=== PATIENT | female | born 1950 | race Caucasian/White ===

== ENCOUNTER → 2017-12-15 | Outpatient (CLI) | payer MEDICARE ==
[~2017-12-15] MED LIST: B-121000 MC1; CALCAVITDA PO; CHOL10002 PO; CRUTCH4 USE; FISH OIL PO; Ferrous Sulfat325 M2 PO; HYDACE5 PO; MIRALAX119 GM PO; MULVITA PO; NITR100; OMEP20ER PO; PSYL5.85P; SACC250C PO; VITAMIN D2000 UNIT PO; [UNRECOGNIZED DRUG - CODE] PO; [UNRECOGNIZED DRUG - OTHER]
[2017-12-15 13:39] LABS: Bilirubin, Urine Neg (Neg); Blood, Urine 5+ (Neg); Glucose Qualitative, Urine Neg (Neg); Ketones, Urine Neg (Neg); Leukocyte Esterase, Urine 3+ (Neg); Nitrite, Urine Neg (Neg); Protein, Urine 3+ (Neg); Urobilinogen, Urine NORM (Normal)
[2017-12-15 13:53] LABS: Appearance, Urine Turbid (Clear); Color, Urine Yellow (P-Yellow)
[2017-12-15 13:54] LABS: Bacteria Many /hpf; Red Blood Cells, Urine TNTC /hpf (0-2); Squamous Epithelial Cells Few /hpf (Few); White Blood Cells, Urine TNTC /hpf (0-5)
== END ==
LOC: OLS 12:08
PROVIDERS: Internal Medicine
DX: N39.0 Urinary tract infection, site not specified (principal)
CPT/HCPCS: 81001; 87077; 87086; 87186

== ENCOUNTER → 2018-01-05 | Outpatient (CLI) | payer MEDICARE | LOC: LAB SHORT 11:53 → PLD 11:53 | DX: C76.41 Malignant neoplasm of right upper limb (principal); D23.9 Other benign neoplasm of skin, unspecified | CPT/HCPCS: 88305 ==

== ENCOUNTER 2019-01-23 18:53 | Observation (INO) | payer MEDICARE ==
[~2019-01-23] VITALS: Ht 170.2 cm; Wt 60.3 kg
[2019-01-23 19:38] LABS: BASOPHILS ABSOLUTE AUTO 0.03 K/mm3 (0.00-0.23); BASOPHILS PERCENT AUTO 0 % (0-2); EOSINOPHILS ABSOLUTE AUTO 0.07 K/mm3 (0.00-0.68); EOSINOPHILS PERCENT AUTO 1 % (0-6); Hematocrit 43.9 % (33.0-51.0); Hemoglobin 14.4 g/dL (11.5-16.0); IMMATURE GRAN ABSOLUTE AUTO 0.01 K/mm3 (0.00-0.10); IMMATURE GRAN PERCENT AUTO 0 % (0-1); LYMPHOCYTES ABSOLUTE AUTO 1.63 K/mm3 (0.84-5.20); LYMPHOCYTES PERCENT AUTO 17 % (21-46); MONOCYTES ABSOLUTE AUTO 1.01 K/mm3 (0.16-1.47); MONOCYTES PERCENT AUTO 11 % (4-13); Mean Corpuscular HGB 30.1 pg (26.0-34.0); Mean Corpuscular HGB Conc 32.8 g/dL (31.5-36.5); Mean Corpuscular Volume 92 fL (80-100); Mean Platelet Volume 9.3 fL (9.1-12.4); NEUTROPHILS ABSOLUTE AUTO 6.64 K/mm3 (1.96-9.15); NEUTROPHILS PERCENT AUTO 71 % (41-73); Platelet Count 309 K/mm3 (150-400); RDW Coefficient Variation 13.3 % (11.7-14.2); Red Blood Cell Count 4.79 M/mm3 (3.80-5.20); White Blood Cell Count 9.39 K/mm3 (4.00-11.30)
[2019-01-23 20:20] LABS: Albumin, Blood 3.1 g/dL (3.4-5.0); Albumin/Globulin Ratio 0.7 (0.8-1.8); Bilirubin, Total 0.7 mg/dL (0.1-1.0); Bun/Creatinine Ratio 20.6 (12.0-20.0); Creatinine, Blood 1.02 mg/dL (0.40-1.00); Globulin, Blood 4.2 g/dL (2.2-4.0); Total Protein, Blood 7.3 g/dL (6.4-8.2)
[2019-01-23 21:02] LABS: Source, Urine Voided
[2019-01-23 21:07] LABS: Appearance, Urine Clear (Clear); Bilirubin, Urine Neg (Neg); Blood, Urine 2+ (Neg); Color, Urine Yellow (P-Yellow); Glucose Qualitative, Urine Neg (Neg); Ketones, Urine 1+ (Neg); Leukocyte Esterase, Urine 1+ (Neg); Nitrite, Urine Neg (Neg); Protein, Urine Neg (Neg); Urobilinogen, Urine NORM (Normal)
[2019-01-23 21:17] LABS: Red Blood Cells, Urine 0-2 /hpf (0-2); Squamous Epithelial Cells Rare /hpf (Few); White Blood Cells, Urine 0-2 /hpf (0-5)
[2019-01-23 21:18] LABS: Bacteria Not Seen /hpf; Calcium Oxalate Crystals Few /hpf
--- NOTE | 2019-01-24 04:37 | NUR ---
SHIFT SUMMARY PT NEW ADMIT THIS SHIFT. AAOX4. DISCOMFORT CONTROLLED WITH 1MG IV DILAUDID X1 SINCE ADMISSION TO FLOOR. NO NAUSEA/EMESIS. SMALL LIQUID STOOL THIS AM. NPO. IVF PER ORDERS. PT ORIENTED TO ROOM + CALL LIGHT USE.
--- NOTE | 2019-01-24 18:42 | NUR ---
PT HAS BEEN STABLE THIS SHIFT. NO COMPLAINTS OF PAIN. XRAY THIS AM SHOWS NO OBSTRUCTION. PT STARTED ON CLEARS, DAKOTA WELL WITHOUT NAUSEA BUT HAD SOME SLIGHT CRAMPING. FL ORDERED FOR BREAKFAST. PT WALKING THE HALLWAYS FREQUENTLY. PT HAS HAD SEVERAL SMALL MUCOUS LIKE BM'S. USES CALL LIGHT APPROPRIATELY.
--- NOTE | 2019-01-25 04:33 | NUR ---
SHIFT SUMMARY PT UP WALKING IN HALLS T/O SHIFT. AAOX4. PT REPORTING FLATUS, NO BM. PT DENIES DISCOMFORT/NAUSEA. PT RESTED INFREQUENTLY T/O NIGHT. CALL LIGHT IN REACH + PT USES FOR ASSISTANCE.
--- NOTE | 2019-01-25 07:42 | NUR ---
PT LAYING ON HER SIDE WITH LEGS DRAWN UP STATED SHE IS PASSING FLATUS NO STOOL THIS AM HYPO BT'S X4 PT STATED PAIN IS 4/10 THRU THE BACK RADIATING TO THE ABD SHARP CRAMPING WITH MILD NAUSEA NO EMESIS PT STATED SHE IS HOLDING OFF EATING AT THIS TIME OFFERED NAUSEA MEDS DECLINED AT THIS TIME
--- NOTE | 2019-01-25 10:59 | NUR ---
pt amb in [facility] called dr marshall office message left pt still having pain req pain meds contacted dr martin who the office stated was manager instrumentation he said rolando was manager instrumentation for his pt's called the office back to let them know stated he is not manager instrumentation for dr garsia pt
--- NOTE | 2019-01-25 11:22 | NUR ---
DR GRANADOS PLACED AN ORDER FOR FENT PRN PAIN STILL IN SAME LOCATION 25 MCG GIVEN ENCOURAGED PT TO TRIAL SOME CL
--- NOTE | 2019-01-25 13:00 | NUR ---
PT HAD SOME JUICE AND JELLO DAKOTA WELL NO NAUSEA
--- NOTE | 2019-01-25 17:09 | NUR ---
PT SITTING UP IN CHAIR STATED SHE JUST GOT BACK FROM A WALK EARLIER HAD SMALL AMT OF STOOL PINKY SIZED SUAREZ BROWN IN COLOR
--- NOTE | 2019-01-26 05:25 | NUR ---
PT VSS T/O NIGHT. PT REP PAIN DAKOTA 01/03, DENIED NEED FOR PAIN MEDS. PT REP HAVING SEVERAL LIQ BM'S, DOES REP SOME CRAMPING W/VOID. PT DENIED N/V, CONT TO REP DEC APPETITE. PT AMB INDEP IN HALLS, DAKOTA WELL. PT USING CALL LIGHT FOR ASSISTANCE, WILL CONT TO MONITOR UNTIL REP GIVEN TO ONCOMING RN.
--- NOTE | 2019-01-26 07:51 | NUR ---
pt sleeping wakes to verbal stimuli stated no abd pain today no stool this am passing gas no nausea
--- NOTE | 2019-01-26 08:47 | NUR ---
PT DAKOTA BREAKFAST STILL NO BM
--- NOTE | 2019-01-26 10:37 | NUR ---
STILL NO BM THIS AM DECREASED FLATUS STATED SHE FEELS BLOATED S/O AT BEDSIDE AMB THIS AM
--- NOTE | 2019-01-26 12:58 | NUR ---
DR GRANADOS BY TO SEE PT
--- NOTE | 2019-01-26 13:40 | NUR ---
WC ESCORT TO CAR PT HAD SMALL BM BEFORE LEAVING
== END 2019-01-26 13:39 | disposition home or self-care (01) ==
LOC: ER 18:53 → SURS 18:54
PROVIDERS: Emergency Medicine; ADMIT Surgery
DX: K56.609 Unspecified intestinal obstruction, unspecified as to partial versus complete obstruction (principal); E78.5 Hyperlipidemia, unspecified; N18.4 Chronic kidney disease, stage 4 (severe); Z88.0 Allergy status to penicillin; Z87.891 Personal history of nicotine dependence; Z79.899 Other long term (current) drug therapy
CPT/HCPCS: 36415; 74018; 74176; 80053; 81001; 83690; 85025; 87086; 96361; 96374; 96375; 99285-25; J1170; J2060; J2405; J3010; J7030; J7120

== ENCOUNTER → 2019-04-07 | Outpatient (CLI) | payer MEDICARE ==
[~2019-04-07] MED LIST changes: +CIPR250; +POTA10T
== END | disposition home or self-care (01) ==
LOC: PLD 12:02 → LAB SHORT 12:02
DX: D48.5 Neoplasm of uncertain behavior of skin (principal)
CPT/HCPCS: 88305

== ENCOUNTER → 2019-06-21 | Outpatient (CLI) | payer MEDICARE ==
[2019-06-21 11:37] LABS: BASOPHILS ABSOLUTE AUTO 0.03 K/mm3 (0.00-0.23); BASOPHILS PERCENT AUTO 0 % (0-2); EOSINOPHILS ABSOLUTE AUTO 0.03 K/mm3 (0.00-0.68); EOSINOPHILS PERCENT AUTO 0 % (0-6); Hematocrit 37.1 % (33.0-51.0); Hemoglobin 12.4 g/dL (11.5-16.0); IMMATURE GRAN ABSOLUTE AUTO 0.04 K/mm3 (0.00-0.10); IMMATURE GRAN PERCENT AUTO 0 % (0-1); LYMPHOCYTES ABSOLUTE AUTO 0.83 K/mm3 (0.84-5.20); LYMPHOCYTES PERCENT AUTO 9 % (21-46); MONOCYTES PERCENT AUTO 12 % (4-13); Mean Corpuscular HGB 30.2 pg (26.0-34.0); Mean Corpuscular HGB Conc 33.4 g/dL (31.5-36.5); Mean Corpuscular Volume 91 fL (80-100); NEUTROPHILS ABSOLUTE AUTO 7.52 K/mm3 (1.96-9.15); NEUTROPHILS PERCENT AUTO 79 % (41-73); Platelet Count 170 K/mm3 (150-400); RDW Coefficient Variation 13.1 % (11.7-14.2); RDW Standard Deviation 43.2 fL (35.1-46.3); White Blood Cell Count 9.55 K/mm3 (4.00-11.30)
[2019-06-21 11:47] LABS: Albumin, Blood 3.1 g/dL (3.4-5.0); Albumin/Globulin Ratio 0.8 (0.8-1.8); Bilirubin, Total 0.9 mg/dL (0.1-1.0); Bun/Creatinine Ratio 8.3 (12.0-20.0); Calcium, Blood 8.7 mg/dL (8.5-10.1); Creatinine, Blood 7.43 mg/dL (0.40-1.00); Potassium, Blood 4.3 mmol/L (3.5-5.5); Total Protein, Blood 7.1 g/dL (6.4-8.2)
== END ==
LOC: LAB EV 11:33 → LAB SHORT 11:33
PROVIDERS: Physician Assistant Medical
DX: N13.30 Unspecified hydronephrosis (principal)
CPT/HCPCS: 80053; 85025

== ENCOUNTER → 2019-07-01 | Outpatient (CLI) | payer MEDICARE | END | disposition home or self-care (01) | LOC: LAB SHORT 10:32 → LAB EV 10:32 | DX: R31.9 Hematuria, unspecified (principal) | CPT/HCPCS: 87077; 87086; 87186 ==

== ENCOUNTER 2019-07-04 06:59 | Inpatient (IN) | payer MEDICARE ==
[~2019-07-04] VITALS: Ht 170.2 cm; Wt 53.4 kg
[~2019-07-04 06:59] MED LIST changes: -CIPR250; -POTA10T
[2019-07-04 08:15] LABS: Source, Urine Clean Catch
[2019-07-04 08:17] LABS: BASOPHILS ABSOLUTE AUTO 0.03 K/mm3 (0.00-0.23); BASOPHILS PERCENT AUTO 0 % (0-2); EOSINOPHILS ABSOLUTE AUTO 0.06 K/mm3 (0.00-0.68); EOSINOPHILS PERCENT AUTO 1 % (0-6); Hematocrit 42.2 % (33.0-51.0); Hemoglobin 13.9 g/dL (11.5-16.0); IMMATURE GRAN ABSOLUTE AUTO 0.03 K/mm3 (0.00-0.10); IMMATURE GRAN PERCENT AUTO 0 % (0-1); LYMPHOCYTES ABSOLUTE AUTO 1.41 K/mm3 (0.84-5.20); LYMPHOCYTES PERCENT AUTO 13 % (21-46); MONOCYTES ABSOLUTE AUTO 1.11 K/mm3 (0.16-1.47); MONOCYTES PERCENT AUTO 10 % (4-13); Mean Corpuscular HGB 29.7 pg (26.0-34.0); Mean Corpuscular HGB Conc 32.9 g/dL (31.5-36.5); Mean Corpuscular Volume 90 fL (80-100); Mean Platelet Volume 9.7 fL (9.1-12.4); NEUTROPHILS ABSOLUTE AUTO 8.66 K/mm3 (1.96-9.15); NEUTROPHILS PERCENT AUTO 77 % (41-73); Platelet Count 334 K/mm3 (150-400); RDW Coefficient Variation 13.2 % (11.7-14.2); RDW Standard Deviation 43.2 fL (35.1-46.3); Red Blood Cell Count 4.68 M/mm3 (3.80-5.20)
[2019-07-04 08:21] LABS: Bilirubin, Urine Neg (Neg); Blood, Urine 5+ (Neg); Glucose Qualitative, Urine Neg (Neg); Ketones, Urine 1+ (Neg); Leukocyte Esterase, Urine 3+ (Neg); Nitrite, Urine Pos (Neg); Protein, Urine 3+ (Neg); Urobilinogen, Urine NORM (Normal)
[2019-07-04 08:29] LABS: Appearance, Urine Cloudy (Clear)
[2019-07-04 08:30] LABS: Color, Urine Amber (P-Yellow)
[2019-07-04 08:31] LABS: Bacteria Mod /hpf; Red Blood Cells, Urine TNTC /hpf (0-2); Squamous Epithelial Cells Few /hpf (Few); White Blood Cells, Urine 25-50 /hpf (0-5)
[2019-07-04 08:40] LABS: Albumin, Blood 3.5 g/dL (3.4-5.0); Albumin/Globulin Ratio 0.8 (0.8-1.8); Bilirubin, Total 0.8 mg/dL (0.1-1.0); Bun/Creatinine Ratio 19.1 (12.0-20.0); Calcium, Blood 9.4 mg/dL (8.5-10.1); Creatinine, Blood 1.94 mg/dL (0.40-1.00); Globulin, Blood 4.3 g/dL (2.2-4.0); Potassium, Blood 4.4 mmol/L (3.5-5.5); Total Protein, Blood 7.8 g/dL (6.4-8.2)
[2019-07-05 05:01] LABS: BASOPHILS ABSOLUTE AUTO 0.03 K/mm3 (0.00-0.23); BASOPHILS PERCENT AUTO 1 % (0-2); Hematocrit 46.2 % (33.0-51.0); Hemoglobin 15.1 g/dL (11.5-16.0); LYMPHOCYTES PERCENT AUTO 8 % (21-46); MONOCYTES ABSOLUTE AUTO 0.95 K/mm3 (0.16-1.47); MONOCYTES PERCENT AUTO 26 % (4-13); Mean Corpuscular HGB 29.5 pg (26.0-34.0); Mean Corpuscular HGB Conc 32.7 g/dL (31.5-36.5); Mean Corpuscular Volume 90 fL (80-100); Mean Platelet Volume 9.8 fL (9.1-12.4); Platelet Count 341 K/mm3 (150-400); RDW Coefficient Variation 13.1 % (11.7-14.2); RDW Standard Deviation 43.8 fL (35.1-46.3); Red Blood Cell Count 5.12 M/mm3 (3.80-5.20); White Blood Cell Count 3.71 K/mm3 (4.00-11.30)
[2019-07-05 05:03] LABS: EOSINOPHILS PERCENT AUTO 0 % (0-6); IMMATURE GRAN ABSOLUTE AUTO 0.01 K/mm3 (0.00-0.10); IMMATURE GRAN PERCENT AUTO 0 % (0-1); NEUTROPHILS ABSOLUTE AUTO 2.42 K/mm3 (1.96-9.15); NEUTROPHILS PERCENT AUTO 65 % (41-73)
[2019-07-05 05:45] LABS: Albumin, Blood 3.4 g/dL (3.4-5.0); Bun/Creatinine Ratio 24.1 (12.0-20.0); Calcium, Blood 9.4 mg/dL (8.5-10.1); Creatinine, Blood 2.45 mg/dL (0.40-1.00); Magnesium, Blood 2.1 mg/dL (1.6-2.4); Phosphorus, Blood 4.6 mg/dL (2.5-4.9); Potassium, Blood 5.2 mmol/L (3.5-5.5)
[2019-07-05 05:47] LABS: Albumin/Globulin Ratio 0.7 (0.8-1.8); Bilirubin, Total 0.6 mg/dL (0.1-1.0); Globulin, Blood 4.8 g/dL (2.2-4.0); Total Protein, Blood 8.2 g/dL (6.4-8.2)
[2019-07-06 04:52] LABS: BASOPHILS ABSOLUTE AUTO 0.04 K/mm3 (0.00-0.23); BASOPHILS PERCENT AUTO 1 % (0-2); LYMPHOCYTES ABSOLUTE AUTO 0.68 K/mm3 (0.84-5.20); LYMPHOCYTES PERCENT AUTO 12 % (21-46); MONOCYTES PERCENT AUTO 12 % (4-13); Mean Corpuscular HGB 30.3 pg (26.0-34.0); Mean Corpuscular HGB Conc 33.3 g/dL (31.5-36.5); Mean Corpuscular Volume 91 fL (80-100); Mean Platelet Volume 10.5 fL (9.1-12.4); Platelet Count 234 K/mm3 (150-400); RDW Coefficient Variation 13.1 % (11.7-14.2); RDW Standard Deviation 43.7 fL (35.1-46.3); Red Blood Cell Count 3.96 M/mm3 (3.80-5.20)
[2019-07-06 04:53] LABS: EOSINOPHILS ABSOLUTE AUTO 0.05 K/mm3 (0.00-0.68); EOSINOPHILS PERCENT AUTO 1 % (0-6); IMMATURE GRAN ABSOLUTE AUTO 0.04 K/mm3 (0.00-0.10); IMMATURE GRAN PERCENT AUTO 1 % (0-1); NEUTROPHILS ABSOLUTE AUTO 4.29 K/mm3 (1.96-9.15); NEUTROPHILS PERCENT AUTO 74 % (41-73)
[2019-07-06 05:14] LABS: Albumin, Blood 2.5 g/dL (3.4-5.0); Albumin/Globulin Ratio 0.6 (0.8-1.8); Bilirubin, Total 0.3 mg/dL (0.1-1.0); Bun/Creatinine Ratio 26.5 (12.0-20.0); Calcium, Blood 8.3 mg/dL (8.5-10.1); Creatinine, Blood 3.32 mg/dL (0.40-1.00); Globulin, Blood 3.9 g/dL (2.2-4.0); Magnesium, Blood 2.3 mg/dL (1.6-2.4); Phosphorus, Blood 3.6 mg/dL (2.5-4.9); Potassium, Blood 3.8 mmol/L (3.5-5.5); Total Protein, Blood 6.4 g/dL (6.4-8.2)
[2019-07-07 06:18] LABS: Hematocrit 34.4 % (33.0-51.0); Hemoglobin 11.2 g/dL (11.5-16.0); Mean Corpuscular HGB 29.9 pg (26.0-34.0); Mean Corpuscular HGB Conc 32.6 g/dL (31.5-36.5); Mean Corpuscular Volume 92 fL (80-100); Mean Platelet Volume 10.5 fL (9.1-12.4); Platelet Count 178 K/mm3 (150-400); RDW Coefficient Variation 12.9 % (11.7-14.2); RDW Standard Deviation 43.3 fL (35.1-46.3); Red Blood Cell Count 3.75 M/mm3 (3.80-5.20); White Blood Cell Count 5.58 K/mm3 (4.00-11.30)
[2019-07-07 06:36] LABS: Albumin, Blood 2.5 g/dL (3.4-5.0); Albumin/Globulin Ratio 0.7 (0.8-1.8); Bilirubin, Total 0.2 mg/dL (0.1-1.0); Bun/Creatinine Ratio 31.5 (12.0-20.0); Calcium, Blood 8.4 mg/dL (8.5-10.1); Globulin, Blood 3.7 g/dL (2.2-4.0); Magnesium, Blood 2.2 mg/dL (1.6-2.4); Phosphorus, Blood 2.6 mg/dL (2.5-4.9); Potassium, Blood 3.3 mmol/L (3.5-5.5); Total Protein, Blood 6.2 g/dL (6.4-8.2)
[2019-07-07 06:49] LABS: BAND PERCENT MAN 7 % (0-8); BASOPHILS ABSOLUTE MAN 0.05 K/mm3 (0.00-0.23); BASOPHILS PERCENT MAN 1 % (0-2); EOSINOPHILS ABSOLUTE MAN 0.16 K/mm3 (0.00-0.68); EOSINOPHILS PERCENT MAN 3 % (0-6); LYMPHOCYTES ABSOLUTE MAN 0.44 K/mm3 (0.84-5.20); LYMPHOCYTES PERCENT MAN 8 % (21-46); MONOCYTES ABSOLUTE MAN 0.22 K/mm3 (0.16-1.47); MONOCYTES PERCENT MAN 4 % (4-13); NEUTROPHILS ABSOLUTE MAN 4.68 K/mm3 (1.96-9.15); SEG NEUTROPHILS PERCENT MAN 77 % (41-73); TOTAL CELLS COUNTED 100
[2019-07-07] MEDS ORDERED: CIPR250 (09:35)
[2019-07-07] MEDS ORDERED: POTA10T (09:37)
== END 2019-07-07 13:10 | disposition home or self-care (01) | DRG 389 ==
LOC: ER 06:59 → MEDS 07:00 → ENPENDDIS 07-07 09:26 → MEDS 07-07 13:10
PROVIDERS: Emergency Medicine; Internal Medicine Nephrology; ADMIT Hospitalist
DX: K56.609 Unspecified intestinal obstruction, unspecified as to partial versus complete obstruction (principal); E87.2 Acidosis; N17.9 Acute kidney failure, unspecified; N39.0 Urinary tract infection, site not specified; N18.3 Chronic kidney disease, stage 3 (moderate); E87.6 Hypokalemia; D64.9 Anemia, unspecified; N13.9 Obstructive and reflux uropathy, unspecified; E88.09 Other disorders of plasma-protein metabolism, not elsewhere classified; E87.5 Hyperkalemia; D89.2 Hypergammaglobulinemia, unspecified; Z87.891 Personal history of nicotine dependence
CPT/HCPCS: 36415; 74019; 74176; 80053; 81001; 83690; 83735; 83880; 84100; 85025; 87086; 96361; 96365; 96375; 96376; 99285-25; J0744; J1170; J1650; J1956; J2405; J2550; J3010; J7030; J7050; J7070; J7120; J7131

== ENCOUNTER → 2019-10-25 | Outpatient (CLI) | payer MEDICARE ==
[~2019-10-25] MED LIST changes: +CIPR250; +POTA10T
[2019-10-25 16:00] LABS: BASOPHILS ABSOLUTE AUTO 0.08 K/mm3 (0.00-0.23); BASOPHILS PERCENT AUTO 1 % (0-2); EOSINOPHILS PERCENT AUTO 2 % (0-6); Hematocrit 36.2 % (33.0-51.0); Hemoglobin 11.6 g/dL (11.5-16.0); IMMATURE GRAN ABSOLUTE AUTO 0.06 K/mm3 (0.00-0.10); IMMATURE GRAN PERCENT AUTO 1 % (0-1); LYMPHOCYTES ABSOLUTE AUTO 1.93 K/mm3 (0.84-5.20); LYMPHOCYTES PERCENT AUTO 18 % (21-46); MONOCYTES ABSOLUTE AUTO 0.76 K/mm3 (0.16-1.47); MONOCYTES PERCENT AUTO 7 % (4-13); Mean Corpuscular HGB 29.1 pg (26.0-34.0); Mean Corpuscular Volume 91 fL (80-100); Mean Platelet Volume 8.7 fL (9.1-12.4); NEUTROPHILS ABSOLUTE AUTO 7.64 K/mm3 (1.96-9.15); NEUTROPHILS PERCENT AUTO 72 % (41-73); RDW Coefficient Variation 13.7 % (11.7-14.2); RDW Standard Deviation 45.7 fL (35.1-46.3); Red Blood Cell Count 3.99 M/mm3 (3.80-5.20); White Blood Cell Count 10.67 K/mm3 (4.00-11.30)
[2019-10-25 16:11] LABS: Albumin, Blood 3.3 g/dL (3.4-5.0); Albumin/Globulin Ratio 0.6 (0.8-1.8); Bilirubin, Total 0.2 mg/dL (0.1-1.0); Bun/Creatinine Ratio 22.4 (12.0-20.0); Calcium, Blood 9.3 mg/dL (8.5-10.1); Creatinine, Blood 1.7 mg/dL (0.40-1.00); Globulin, Blood 5.4 g/dL (2.2-4.0); Potassium, Blood 5.3 mmol/L (3.5-5.5); Total Protein, Blood 8.7 g/dL (6.4-8.2)
[2019-10-25 16:26] LABS: Platelet Count 1148 K/mm3 (150-400)
== END | disposition home or self-care (01) ==
LOC: LAB EV 15:54 → LAB SHORT 15:54
PROVIDERS: Physician Assistant Medical
DX: R53.83 Other fatigue (principal)
CPT/HCPCS: 80053; 85025

== ENCOUNTER → 2019-10-26 | Outpatient (CLI) | payer MEDICARE ==
[2019-10-26 08:40] LABS: BASOPHILS ABSOLUTE AUTO 0.08 K/mm3 (0.00-0.23); BASOPHILS PERCENT AUTO 1 % (0-2); EOSINOPHILS ABSOLUTE AUTO 0.35 K/mm3 (0.00-0.68); EOSINOPHILS PERCENT AUTO 4 % (0-6); Hematocrit 33.9 % (33.0-51.0); Hemoglobin 10.7 g/dL (11.5-16.0); IMMATURE GRAN ABSOLUTE AUTO 0.06 K/mm3 (0.00-0.10); IMMATURE GRAN PERCENT AUTO 1 % (0-1); LYMPHOCYTES ABSOLUTE AUTO 2.07 K/mm3 (0.84-5.20); LYMPHOCYTES PERCENT AUTO 22 % (21-46); MONOCYTES ABSOLUTE AUTO 0.69 K/mm3 (0.16-1.47); MONOCYTES PERCENT AUTO 7 % (4-13); Mean Corpuscular HGB Conc 31.6 g/dL (31.5-36.5); Mean Corpuscular Volume 92 fL (80-100); Mean Platelet Volume 8.7 fL (9.1-12.4); NEUTROPHILS ABSOLUTE AUTO 6.24 K/mm3 (1.96-9.15); NEUTROPHILS PERCENT AUTO 66 % (41-73); Platelet Count 951 K/mm3 (150-400); RDW Coefficient Variation 13.7 % (11.7-14.2); RDW Standard Deviation 46.6 fL (35.1-46.3); Red Blood Cell Count 3.69 M/mm3 (3.80-5.20); White Blood Cell Count 9.49 K/mm3 (4.00-11.30)
[2019-10-26 08:53] LABS: Albumin, Blood 2.9 g/dL (3.4-5.0); Albumin/Globulin Ratio 0.6 (0.8-1.8); Bilirubin, Total 0.2 mg/dL (0.1-1.0); Calcium, Blood 9.2 mg/dL (8.5-10.1); Creatinine, Blood 1.43 mg/dL (0.40-1.00); Globulin, Blood 4.9 g/dL (2.2-4.0); Potassium, Blood 4.4 mmol/L (3.5-5.5); Total Protein, Blood 7.8 g/dL (6.4-8.2)
== END | disposition home or self-care (01) ==
LOC: LAB SHORT 08:36 → LAB EV 08:36
PROVIDERS: Physician Assistant Medical
DX: R94.4 Abnormal results of kidney function studies (principal)
CPT/HCPCS: 80053; 85025

== ENCOUNTER 2020-04-05 00:46 | Day surgery (SDC) | payer MEDICARE | END 2020-04-05 23:17 | disposition home or self-care (01) | LOC: WOUND 00:46 | DX: S31.000A Unspecified open wound of lower back and pelvis without penetration into retroperitoneum, initial encounter (principal); T81.31XA Disruption of external operation (surgical) wound, not elsewhere classified, initial encounter; N18.3 Chronic kidney disease, stage 3 (moderate); Z90.710 Acquired absence of both cervix and uterus; Z90.79 Acquired absence of other genital organ(s); Z90.722 Acquired absence of ovaries, bilateral; Z90.49 Acquired absence of other specified parts of digestive tract | CPT/HCPCS: G0463 ==

== ENCOUNTER → 2020-04-11 | Outpatient (CLI) | payer MEDICARE | END | disposition home or self-care (01) | LOC: PLD 11:44 → LAB SHORT 11:44 | DX: D48.5 Neoplasm of uncertain behavior of skin (principal) | CPT/HCPCS: 88305 ==

== ENCOUNTER 2020-04-13 00:16 | Day surgery (SDC) | payer MEDICARE | END 2020-04-13 23:15 | disposition home or self-care (01) | LOC: WOUND 00:16 | DX: S31.0 Open wound of lower back and pelvis (principal); T81.31XD Disruption of external operation (surgical) wound, not elsewhere classified, subsequent encounter | CPT/HCPCS: G0463 ==

== ENCOUNTER 2020-04-20 00:21 | Day surgery (SDC) | payer MEDICARE | END 2020-04-20 23:02 | disposition home or self-care (01) | LOC: WOUND 00:21 | DX: T81.31XD Disruption of external operation (surgical) wound, not elsewhere classified, subsequent encounter (principal); S31.000D Unspecified open wound of lower back and pelvis without penetration into retroperitoneum, subsequent encounter; X58.XXXD Exposure to other specified factors, subsequent encounter ==

== ENCOUNTER 2020-04-24 00:20 | Day surgery (SDC) | payer MEDICARE | END 2020-04-24 22:48 | disposition home or self-care (01) | LOC: WOUND 00:20 | DX: S31.000D Unspecified open wound of lower back and pelvis without penetration into retroperitoneum, subsequent encounter (principal) ==

== ENCOUNTER 2020-04-27 00:21 | Day surgery (SDC) | payer MEDICARE | END 2020-04-27 22:49 | disposition home or self-care (01) | LOC: WOUND 00:21 | DX: S31.000D Unspecified open wound of lower back and pelvis without penetration into retroperitoneum, subsequent encounter (principal); T81.31XD Disruption of external operation (surgical) wound, not elsewhere classified, subsequent encounter; L59.9 Disorder of the skin and subcutaneous tissue related to radiation, unspecified; Z90.710 Acquired absence of both cervix and uterus; Z92.3 Personal history of irradiation; Z90.79 Acquired absence of other genital organ(s); Z90.722 Acquired absence of ovaries, bilateral | CPT/HCPCS: G0463 ==

== ENCOUNTER 2020-05-10 00:13 | Day surgery (SDC) | payer MEDICARE | END 2020-05-10 22:53 | disposition home or self-care (01) | LOC: WOUND 00:13 | DX: S31.000D Unspecified open wound of lower back and pelvis without penetration into retroperitoneum, subsequent encounter (principal) | CPT/HCPCS: G0463 ==

== ENCOUNTER 2020-06-05 00:21 | Day surgery (SDC) | payer MEDICARE | END 2020-06-05 22:57 | disposition home or self-care (01) | LOC: HBO 00:21 | DX: L98.499 Non-pressure chronic ulcer of skin of other sites with unspecified severity (principal); L59.8 Other specified disorders of the skin and subcutaneous tissue related to radiation; Z92.3 Personal history of irradiation | CPT/HCPCS: G0277; G0463 ==

== ENCOUNTER 2020-06-09 00:01 | Day surgery (SDC) | payer MEDICARE | END 2020-06-09 22:52 | disposition home or self-care (01) | LOC: HBO 00:01 | DX: L59.8 Other specified disorders of the skin and subcutaneous tissue related to radiation (principal); L98.499 Non-pressure chronic ulcer of skin of other sites with unspecified severity; Z92.3 Personal history of irradiation | CPT/HCPCS: G0277 ==

== ENCOUNTER 2020-06-09 00:12 | Day surgery (SDC) | payer MEDICARE | END 2020-06-09 22:52 | disposition home or self-care (01) | LOC: WOUND 00:12 | DX: L98.499 Non-pressure chronic ulcer of skin of other sites with unspecified severity (principal); L59.8 Other specified disorders of the skin and subcutaneous tissue related to radiation; Z92.3 Personal history of irradiation ==

== ENCOUNTER 2020-06-12 00:21 | Day surgery (SDC) | payer MEDICARE | END 2020-06-12 23:11 | disposition home or self-care (01) | LOC: HBO 00:21 | DX: L59.8 Other specified disorders of the skin and subcutaneous tissue related to radiation (principal); L98.499 Non-pressure chronic ulcer of skin of other sites with unspecified severity; Z92.3 Personal history of irradiation | CPT/HCPCS: G0277 ==

== ENCOUNTER 2020-06-13 00:47 | Day surgery (SDC) | payer MEDICARE | END 2020-06-13 22:58 | disposition home or self-care (01) | LOC: HBO 00:47 | DX: L59.8 Other specified disorders of the skin and subcutaneous tissue related to radiation (principal); L98.499 Non-pressure chronic ulcer of skin of other sites with unspecified severity; Z92.3 Personal history of irradiation | CPT/HCPCS: G0277 ==

== ENCOUNTER 2020-06-19 00:25 | Day surgery (SDC) | payer MEDICARE | END 2020-06-19 23:01 | disposition home or self-care (01) | LOC: WOUND 00:25 → HBO 08:39 → WOUND 08:44 | DX: L59.8 Other specified disorders of the skin and subcutaneous tissue related to radiation (principal); L98.499 Non-pressure chronic ulcer of skin of other sites with unspecified severity; Z92.3 Personal history of irradiation | CPT/HCPCS: G0463 ==

== ENCOUNTER 2020-06-20 00:10 | Day surgery (SDC) | payer MEDICARE | END 2020-06-20 23:14 | disposition home or self-care (01) | LOC: HBO 00:10 | DX: L59.8 Other specified disorders of the skin and subcutaneous tissue related to radiation (principal); L98.499 Non-pressure chronic ulcer of skin of other sites with unspecified severity; Z92.3 Personal history of irradiation | CPT/HCPCS: G0277 ==

== ENCOUNTER 2020-06-22 00:27 | Day surgery (SDC) | payer MEDICARE | END 2020-06-22 22:51 | disposition home or self-care (01) | LOC: HBO 00:27 | DX: L59.8 Other specified disorders of the skin and subcutaneous tissue related to radiation (principal); L98.499 Non-pressure chronic ulcer of skin of other sites with unspecified severity; Z92.3 Personal history of irradiation | CPT/HCPCS: G0277 ==

== ENCOUNTER 2020-06-23 00:18 | Day surgery (SDC) | payer MEDICARE | END 2020-06-23 22:56 | disposition home or self-care (01) | LOC: WOUND 00:18 | DX: L59.8 Other specified disorders of the skin and subcutaneous tissue related to radiation (principal); L98.492 Non-pressure chronic ulcer of skin of other sites with fat layer exposed; Z92.3 Personal history of irradiation; N18.3 Chronic kidney disease, stage 3 (moderate) | CPT/HCPCS: G0463 ==

== ENCOUNTER 2020-06-23 07:42 | Day surgery (SDC) | payer MEDICARE | END 2020-06-23 22:56 | disposition home or self-care (01) | LOC: HBO 07:42 | DX: L59.8 Other specified disorders of the skin and subcutaneous tissue related to radiation (principal); L98.492 Non-pressure chronic ulcer of skin of other sites with fat layer exposed; Z92.3 Personal history of irradiation; N18.3 Chronic kidney disease, stage 3 (moderate) | CPT/HCPCS: G0277 ==

== ENCOUNTER 2020-06-26 00:19 | Day surgery (SDC) | payer MEDICARE | END 2020-06-26 22:50 | disposition home or self-care (01) | LOC: WOUND 00:19 | DX: L59.8 Other specified disorders of the skin and subcutaneous tissue related to radiation (principal); L98.499 Non-pressure chronic ulcer of skin of other sites with unspecified severity; Z92.3 Personal history of irradiation | CPT/HCPCS: G0463 ==

== ENCOUNTER 2020-06-28 00:37 | Day surgery (SDC) | payer MEDICARE | END 2020-06-28 22:50 | disposition home or self-care (01) | LOC: WOUND 00:37 | DX: L59.8 Other specified disorders of the skin and subcutaneous tissue related to radiation (principal); L98.499 Non-pressure chronic ulcer of skin of other sites with unspecified severity; Z92.3 Personal history of irradiation | CPT/HCPCS: G0463 ==

== ENCOUNTER 2020-06-28 08:29 | Day surgery (SDC) | payer MEDICARE | END 2020-06-28 22:50 | disposition home or self-care (01) | LOC: HBO 08:29 | DX: L59.8 Other specified disorders of the skin and subcutaneous tissue related to radiation (principal); L98.499 Non-pressure chronic ulcer of skin of other sites with unspecified severity; Z92.3 Personal history of irradiation | CPT/HCPCS: G0277 ==

== ENCOUNTER 2020-06-29 07:42 | Day surgery (SDC) | payer MEDICARE | END 2020-06-29 23:13 | disposition home or self-care (01) | LOC: HBO 07:42 | DX: L59.8 Other specified disorders of the skin and subcutaneous tissue related to radiation (principal); L98.499 Non-pressure chronic ulcer of skin of other sites with unspecified severity; Z92.3 Personal history of irradiation | CPT/HCPCS: G0277 ==

== ENCOUNTER 2020-06-30 00:09 | Day surgery (SDC) | payer MEDICARE | END 2020-06-30 22:45 | disposition home or self-care (01) | LOC: HBO 00:09 | DX: L59.8 Other specified disorders of the skin and subcutaneous tissue related to radiation (principal); L98.499 Non-pressure chronic ulcer of skin of other sites with unspecified severity; Z92.3 Personal history of irradiation | CPT/HCPCS: G0277 ==

== ENCOUNTER 2020-06-30 00:10 | Day surgery (SDC) | payer MEDICARE | END 2020-06-30 22:45 | disposition home or self-care (01) | LOC: WOUND 00:10 | DX: L98.499 Non-pressure chronic ulcer of skin of other sites with unspecified severity (principal); L59.8 Other specified disorders of the skin and subcutaneous tissue related to radiation; Z92.3 Personal history of irradiation ==

== ENCOUNTER 2020-07-04 00:37 | Day surgery (SDC) | payer MEDICARE | END 2020-07-04 22:41 | disposition home or self-care (01) | LOC: HBO 00:37 | DX: L59.8 Other specified disorders of the skin and subcutaneous tissue related to radiation (principal); L98.499 Non-pressure chronic ulcer of skin of other sites with unspecified severity; Z92.3 Personal history of irradiation | CPT/HCPCS: G0277 ==

== ENCOUNTER 2020-07-04 16:25 | Day surgery (SDC) | payer MEDICARE | END 2020-07-18 22:49 | disposition home or self-care (01) | LOC: WOUND 16:25 | DX: L59.8 Other specified disorders of the skin and subcutaneous tissue related to radiation (principal); L98.499 Non-pressure chronic ulcer of skin of other sites with unspecified severity; Z92.3 Personal history of irradiation | CPT/HCPCS: G0463 ==

== ENCOUNTER 2020-07-06 00:16 | Day surgery (SDC) | payer MEDICARE | END 2020-07-06 22:39 | disposition home or self-care (01) | LOC: HBO 00:16 | DX: L59.8 Other specified disorders of the skin and subcutaneous tissue related to radiation (principal); L98.499 Non-pressure chronic ulcer of skin of other sites with unspecified severity; Z92.3 Personal history of irradiation | CPT/HCPCS: G0277 ==

== ENCOUNTER 2020-07-07 00:22 | Day surgery (SDC) | payer MEDICARE | END 2020-07-07 22:43 | disposition home or self-care (01) | LOC: WOUND 00:22 | DX: L59.8 Other specified disorders of the skin and subcutaneous tissue related to radiation (principal); L98.499 Non-pressure chronic ulcer of skin of other sites with unspecified severity; N18.3 Chronic kidney disease, stage 3 (moderate); Z92.3 Personal history of irradiation | CPT/HCPCS: G0463 ==

== ENCOUNTER 2020-07-07 00:35 | Day surgery (SDC) | payer MEDICARE | END 2020-07-07 22:44 | disposition home or self-care (01) | LOC: HBO 00:35 | DX: L59.8 Other specified disorders of the skin and subcutaneous tissue related to radiation (principal); L98.499 Non-pressure chronic ulcer of skin of other sites with unspecified severity; Z92.3 Personal history of irradiation | CPT/HCPCS: G0277 ==

== ENCOUNTER 2020-07-10 00:28 | Day surgery (SDC) | payer MEDICARE | END 2020-07-10 22:56 | disposition home or self-care (01) | LOC: HBO 00:28 | DX: L59.8 Other specified disorders of the skin and subcutaneous tissue related to radiation (principal); L98.499 Non-pressure chronic ulcer of skin of other sites with unspecified severity; Z92.3 Personal history of irradiation | CPT/HCPCS: G0277; G0463 ==

== ENCOUNTER 2020-07-11 00:14 | Day surgery (SDC) | payer MEDICARE | END 2020-07-11 22:47 | disposition home or self-care (01) | LOC: HBO 00:14 | DX: L59.8 Other specified disorders of the skin and subcutaneous tissue related to radiation (principal); L98.499 Non-pressure chronic ulcer of skin of other sites with unspecified severity; Z92.3 Personal history of irradiation | CPT/HCPCS: G0277 ==

== ENCOUNTER 2020-07-14 00:55 | Day surgery (SDC) | payer MEDICARE | END 2020-07-14 23:07 | disposition home or self-care (01) | LOC: HBO 00:55 | DX: L59.8 Other specified disorders of the skin and subcutaneous tissue related to radiation (principal); L98.499 Non-pressure chronic ulcer of skin of other sites with unspecified severity; Z92.3 Personal history of irradiation | CPT/HCPCS: G0277 ==

== ENCOUNTER 2020-07-17 07:59 | Day surgery (SDC) | payer MEDICARE | END 2020-07-17 23:22 | disposition home or self-care (01) | LOC: WOUND 07:59 | DX: L59.8 Other specified disorders of the skin and subcutaneous tissue related to radiation (principal); L98.499 Non-pressure chronic ulcer of skin of other sites with unspecified severity; L92.3 Foreign body granuloma of the skin and subcutaneous tissue; Z79.899 Other long term (current) drug therapy | CPT/HCPCS: G0463 ==

== ENCOUNTER 2020-07-18 00:33 | Day surgery (SDC) | payer MEDICARE | END 2020-07-18 22:49 | disposition home or self-care (01) | LOC: HBO 00:33 | DX: L59.8 Other specified disorders of the skin and subcutaneous tissue related to radiation (principal); L98.499 Non-pressure chronic ulcer of skin of other sites with unspecified severity; Z92.3 Personal history of irradiation | CPT/HCPCS: G0277 ==

== ENCOUNTER 2020-07-19 15:20 | Day surgery (SDC) | payer MEDICARE | END 2020-07-21 12:00 | disposition home or self-care (01) | LOC: WOUND 15:20 | DX: L59.8 Other specified disorders of the skin and subcutaneous tissue related to radiation (principal); L98.499 Non-pressure chronic ulcer of skin of other sites with unspecified severity; Z92.3 Personal history of irradiation | CPT/HCPCS: G0463 ==

== ENCOUNTER 2020-07-20 00:28 | Day surgery (SDC) | payer MEDICARE | END 2020-07-20 22:47 | disposition home or self-care (01) | LOC: HBO 00:28 | DX: L59.8 Other specified disorders of the skin and subcutaneous tissue related to radiation (principal); T81.31XD Disruption of external operation (surgical) wound, not elsewhere classified, subsequent encounter; L59.9 Disorder of the skin and subcutaneous tissue related to radiation, unspecified; L98.499 Non-pressure chronic ulcer of skin of other sites with unspecified severity; Z92.3 Personal history of irradiation | CPT/HCPCS: G0277 ==

== ENCOUNTER 2020-07-21 00:36 | Day surgery (SDC) | payer MEDICARE | END 2020-07-21 12:00 | disposition home or self-care (01) | LOC: WOUND 00:36 | DX: L59.8 Other specified disorders of the skin and subcutaneous tissue related to radiation (principal); L98.499 Non-pressure chronic ulcer of skin of other sites with unspecified severity; Z92.3 Personal history of irradiation | CPT/HCPCS: G0463 ==

== ENCOUNTER 2020-07-21 00:45 | Day surgery (SDC) | payer MEDICARE | END 2020-07-21 12:00 | disposition home or self-care (01) | LOC: HBO 00:45 | DX: L59.8 Other specified disorders of the skin and subcutaneous tissue related to radiation (principal); L98.499 Non-pressure chronic ulcer of skin of other sites with unspecified severity; Z92.3 Personal history of irradiation | CPT/HCPCS: G0277 ==

== ENCOUNTER 2020-07-24 00:16 | Day surgery (SDC) | payer MEDICARE | END 2020-07-24 22:56 | disposition home or self-care (01) | LOC: HBO 00:16 | DX: L59.8 Other specified disorders of the skin and subcutaneous tissue related to radiation (principal); L98.499 Non-pressure chronic ulcer of skin of other sites with unspecified severity; Z92.3 Personal history of irradiation | CPT/HCPCS: G0277 ==

== ENCOUNTER 2020-07-24 00:17 | Day surgery (SDC) | payer MEDICARE | END 2020-07-24 22:56 | disposition home or self-care (01) | LOC: WOUND 00:17 | DX: L59.8 Other specified disorders of the skin and subcutaneous tissue related to radiation (principal); L98.499 Non-pressure chronic ulcer of skin of other sites with unspecified severity; Z92.3 Personal history of irradiation | CPT/HCPCS: G0463 ==

== ENCOUNTER 2020-07-25 00:08 | Day surgery (SDC) | payer MEDICARE | END 2020-07-25 22:49 | disposition home or self-care (01) | LOC: HBO 00:08 | DX: L59.8 Other specified disorders of the skin and subcutaneous tissue related to radiation (principal); L98.499 Non-pressure chronic ulcer of skin of other sites with unspecified severity; Z92.3 Personal history of irradiation | CPT/HCPCS: G0277 ==

== ENCOUNTER 2020-07-26 00:30 | Day surgery (SDC) | payer MEDICARE | END 2020-07-26 22:40 | disposition home or self-care (01) | LOC: WOUND 00:30 | DX: T81.30XA Disruption of wound, unspecified, initial encounter (principal); L59.8 Other specified disorders of the skin and subcutaneous tissue related to radiation; E07.9 Disorder of thyroid, unspecified; Z92.3 Personal history of irradiation; Z88.0 Allergy status to penicillin; Z79.899 Other long term (current) drug therapy; Y83.8 Other surgical procedures as the cause of abnormal reaction of the patient, or of later complication, without mention of misadventure at the time of the procedure; Y84.2 Radiological procedure and radiotherapy as the cause of abnormal reaction of the patient, or of later complication, without mention of misadventure at the time of the procedure; Y78.8 Miscellaneous radiological devices associated with adverse incidents, not elsewhere classified | CPT/HCPCS: G0463 ==

== ENCOUNTER 2020-07-27 00:09 | Day surgery (SDC) | payer MEDICARE | END 2020-07-27 22:43 | disposition home or self-care (01) | LOC: HBO 00:09 → WOUND 11:36 → HBO 14:12 | DX: L59.8 Other specified disorders of the skin and subcutaneous tissue related to radiation (principal); L98.499 Non-pressure chronic ulcer of skin of other sites with unspecified severity; Z92.3 Personal history of irradiation; Z88.0 Allergy status to penicillin; Z79.899 Other long term (current) drug therapy; Z84.2 Family history of other diseases of the genitourinary system; Y84.2 Radiological procedure and radiotherapy as the cause of abnormal reaction of the patient, or of later complication, without mention of misadventure at the time of the procedure; Y78.8 Miscellaneous radiological devices associated with adverse incidents, not elsewhere classified | CPT/HCPCS: G0277 ==

== ENCOUNTER 2020-07-28 00:31 | Day surgery (SDC) | payer MEDICARE | END 2020-07-28 23:08 | disposition home or self-care (01) | LOC: WOUND 00:31 | DX: T81.31XA Disruption of external operation (surgical) wound, not elsewhere classified, initial encounter (principal); L59.8 Other specified disorders of the skin and subcutaneous tissue related to radiation; I96 Gangrene, not elsewhere classified; N18.30 Chronic kidney disease, stage 3 unspecified; E07.9 Disorder of thyroid, unspecified; Z88.0 Allergy status to penicillin; Z85.038 Personal history of other malignant neoplasm of large intestine; Z92.3 Personal history of irradiation; Z85.048 Personal history of other malignant neoplasm of rectum, rectosigmoid junction, and anus; Z90.710 Acquired absence of both cervix and uterus; Z93.2 Ileostomy status; Y83.8 Other surgical procedures as the cause of abnormal reaction of the patient, or of later complication, without mention of misadventure at the time of the procedure; Y84.2 Radiological procedure and radiotherapy as the cause of abnormal reaction of the patient, or of later complication, without mention of misadventure at the time of the procedure; Y78.8 Miscellaneous radiological devices associated with adverse incidents, not elsewhere classified | CPT/HCPCS: G0463 ==

== ENCOUNTER 2020-07-28 00:43 | Day surgery (SDC) | payer MEDICARE | END 2020-07-28 23:09 | disposition home or self-care (01) | LOC: HBO 00:43 | DX: L59.8 Other specified disorders of the skin and subcutaneous tissue related to radiation (principal); L98.499 Non-pressure chronic ulcer of skin of other sites with unspecified severity; Z92.3 Personal history of irradiation; Z88.0 Allergy status to penicillin; Z79.899 Other long term (current) drug therapy; Y84.2 Radiological procedure and radiotherapy as the cause of abnormal reaction of the patient, or of later complication, without mention of misadventure at the time of the procedure; Y78.8 Miscellaneous radiological devices associated with adverse incidents, not elsewhere classified | CPT/HCPCS: G0277 ==

== ENCOUNTER 2020-07-31 00:38 | Day surgery (SDC) | payer MEDICARE | END 2020-07-31 23:30 | disposition home or self-care (01) | LOC: WOUND 00:38 | DX: T81.31XA Disruption of external operation (surgical) wound, not elsewhere classified, initial encounter (principal); L59.8 Other specified disorders of the skin and subcutaneous tissue related to radiation; E07.9 Disorder of thyroid, unspecified; Z92.3 Personal history of irradiation; Z79.899 Other long term (current) drug therapy; Y84.2 Radiological procedure and radiotherapy as the cause of abnormal reaction of the patient, or of later complication, without mention of misadventure at the time of the procedure; Y78.8 Miscellaneous radiological devices associated with adverse incidents, not elsewhere classified; Y83.8 Other surgical procedures as the cause of abnormal reaction of the patient, or of later complication, without mention of misadventure at the time of the procedure | CPT/HCPCS: G0463 ==

== ENCOUNTER 2020-08-02 00:31 | Day surgery (SDC) | payer MEDICARE | END 2020-08-02 22:43 | disposition home or self-care (01) | LOC: WOUND 00:31 | DX: L59.8 Other specified disorders of the skin and subcutaneous tissue related to radiation (principal); L98.499 Non-pressure chronic ulcer of skin of other sites with unspecified severity; Z92.3 Personal history of irradiation | CPT/HCPCS: G0463 ==

== ENCOUNTER 2020-08-04 02:00 | Day surgery (SDC) | payer MEDICARE | END 2020-08-04 22:40 | disposition home or self-care (01) | LOC: WOUND 02:00 | DX: L59.8 Other specified disorders of the skin and subcutaneous tissue related to radiation (principal); N18.30 Chronic kidney disease, stage 3 unspecified; L98.499 Non-pressure chronic ulcer of skin of other sites with unspecified severity; Z92.3 Personal history of irradiation | CPT/HCPCS: G0463 ==

== ENCOUNTER 2020-08-14 00:30 | Day surgery (SDC) | payer MEDICARE | END 2020-08-14 22:47 | disposition home or self-care (01) | LOC: WOUND 00:30 | DX: T81.31XA Disruption of external operation (surgical) wound, not elsewhere classified, initial encounter (principal); L59.8 Other specified disorders of the skin and subcutaneous tissue related to radiation; L98.492 Non-pressure chronic ulcer of skin of other sites with fat layer exposed; N18.30 Chronic kidney disease, stage 3 unspecified; D53.1 Other megaloblastic anemias, not elsewhere classified; E07.9 Disorder of thyroid, unspecified; Z92.3 Personal history of irradiation; Z90.710 Acquired absence of both cervix and uterus; Z90.722 Acquired absence of ovaries, bilateral; Z90.79 Acquired absence of other genital organ(s); Z79.899 Other long term (current) drug therapy; Z88.0 Allergy status to penicillin; Z93.2 Ileostomy status; Y84.2 Radiological procedure and radiotherapy as the cause of abnormal reaction of the patient, or of later complication, without mention of misadventure at the time of the procedure; Y78.8 Miscellaneous radiological devices associated with adverse incidents, not elsewhere classified; Y83.8 Other surgical procedures as the cause of abnormal reaction of the patient, or of later complication, without mention of misadventure at the time of the procedure | CPT/HCPCS: G0463 ==

== ENCOUNTER 2020-08-21 00:13 | Day surgery (SDC) | payer MEDICARE | END 2020-08-21 12:00 | disposition home or self-care (01) | LOC: WOUND 00:13 | DX: T81.31XD Disruption of external operation (surgical) wound, not elsewhere classified, subsequent encounter (principal); L59.8 Other specified disorders of the skin and subcutaneous tissue related to radiation; L98.492 Non-pressure chronic ulcer of skin of other sites with fat layer exposed; N18.30 Chronic kidney disease, stage 3 unspecified; E53.8 Deficiency of other specified B group vitamins; D53.1 Other megaloblastic anemias, not elsewhere classified; E07.9 Disorder of thyroid, unspecified; Z79.899 Other long term (current) drug therapy; Z90.710 Acquired absence of both cervix and uterus; Z93.2 Ileostomy status; Z92.3 Personal history of irradiation; Y83.8 Other surgical procedures as the cause of abnormal reaction of the patient, or of later complication, without mention of misadventure at the time of the procedure; Y84.2 Radiological procedure and radiotherapy as the cause of abnormal reaction of the patient, or of later complication, without mention of misadventure at the time of the procedure; Y78.8 Miscellaneous radiological devices associated with adverse incidents, not elsewhere classified | CPT/HCPCS: G0463 ==

== ENCOUNTER 2020-08-28 00:48 | Day surgery (SDC) | payer MEDICARE | END 2020-08-28 23:54 | disposition home or self-care (01) | LOC: WOUND 00:48 | DX: T81.31XA Disruption of external operation (surgical) wound, not elsewhere classified, initial encounter (principal); L59.8 Other specified disorders of the skin and subcutaneous tissue related to radiation; L98.492 Non-pressure chronic ulcer of skin of other sites with fat layer exposed; N18.30 Chronic kidney disease, stage 3 unspecified; D53.1 Other megaloblastic anemias, not elsewhere classified; E53.8 Deficiency of other specified B group vitamins; E07.9 Disorder of thyroid, unspecified; Z92.3 Personal history of irradiation; Z93.2 Ileostomy status; Z90.710 Acquired absence of both cervix and uterus; Z88.0 Allergy status to penicillin; Z79.899 Other long term (current) drug therapy; Y83.8 Other surgical procedures as the cause of abnormal reaction of the patient, or of later complication, without mention of misadventure at the time of the procedure; Y84.2 Radiological procedure and radiotherapy as the cause of abnormal reaction of the patient, or of later complication, without mention of misadventure at the time of the procedure; Y78.8 Miscellaneous radiological devices associated with adverse incidents, not elsewhere classified | CPT/HCPCS: G0463 ==

== ENCOUNTER 2020-09-05 00:46 | Day surgery (SDC) | payer MEDICARE | END 2020-09-05 23:02 | disposition home or self-care (01) | LOC: WOUND 00:46 | DX: L59.8 Other specified disorders of the skin and subcutaneous tissue related to radiation (principal); L98.499 Non-pressure chronic ulcer of skin of other sites with unspecified severity; N18.30 Chronic kidney disease, stage 3 unspecified; Z92.3 Personal history of irradiation | CPT/HCPCS: G0463 ==

== ENCOUNTER → 2020-09-05 | Outpatient (CLI) | payer MEDICARE | END | disposition home or self-care (01) | LOC: LAB SHORT 11:04 → PLD 11:04 | DX: D23.39 Other benign neoplasm of skin of other parts of face (principal) | CPT/HCPCS: 88305 ==

== ENCOUNTER 2020-09-19 01:03 | Day surgery (SDC) | payer MEDICARE | END 2020-09-19 23:41 | disposition home or self-care (01) | LOC: WOUND 01:03 | DX: T81.31XD Disruption of external operation (surgical) wound, not elsewhere classified, subsequent encounter (principal); L59.8 Other specified disorders of the skin and subcutaneous tissue related to radiation; N18.30 Chronic kidney disease, stage 3 unspecified; E07.9 Disorder of thyroid, unspecified; Z92.3 Personal history of irradiation; Z88.0 Allergy status to penicillin; Z90.710 Acquired absence of both cervix and uterus; Z90.79 Acquired absence of other genital organ(s); Z90.722 Acquired absence of ovaries, bilateral; Z93.2 Ileostomy status; Z79.899 Other long term (current) drug therapy; Y78.8 Miscellaneous radiological devices associated with adverse incidents, not elsewhere classified; Y84.2 Radiological procedure and radiotherapy as the cause of abnormal reaction of the patient, or of later complication, without mention of misadventure at the time of the procedure; Y83.8 Other surgical procedures as the cause of abnormal reaction of the patient, or of later complication, without mention of misadventure at the time of the procedure | CPT/HCPCS: G0463 ==

== ENCOUNTER 2020-10-17 00:34 | Day surgery (SDC) | payer MEDICARE | END 2020-10-17 23:00 | disposition home or self-care (01) | LOC: WOUND 00:34 | DX: T81.31XD Disruption of external operation (surgical) wound, not elsewhere classified, subsequent encounter (principal); L59.8 Other specified disorders of the skin and subcutaneous tissue related to radiation; N18.30 Chronic kidney disease, stage 3 unspecified; L98.492 Non-pressure chronic ulcer of skin of other sites with fat layer exposed; Z92.3 Personal history of irradiation; Z79.899 Other long term (current) drug therapy; Z88.0 Allergy status to penicillin; Z93.2 Ileostomy status; Y83.8 Other surgical procedures as the cause of abnormal reaction of the patient, or of later complication, without mention of misadventure at the time of the procedure; Y84.2 Radiological procedure and radiotherapy as the cause of abnormal reaction of the patient, or of later complication, without mention of misadventure at the time of the procedure; Y78.8 Miscellaneous radiological devices associated with adverse incidents, not elsewhere classified | CPT/HCPCS: G0463 ==

== ENCOUNTER → 2020-10-31 | Outpatient (CLI) | payer MEDICARE | END | disposition home or self-care (01) | LOC: PLD 12:22 → LAB SHORT 12:22 | DX: D23.9 Other benign neoplasm of skin, unspecified (principal); L73.9 Follicular disorder, unspecified | CPT/HCPCS: 88305 ==

== ENCOUNTER → 2021-03-05 | Outpatient (CLI) | payer MEDICARE | END | disposition home or self-care (01) | LOC: LAB SHORT 12:03 → PLD 12:03 | DX: D48.5 Neoplasm of uncertain behavior of skin (principal) | CPT/HCPCS: 88305 ==

== ENCOUNTER → 2021-07-27 | Outpatient (CLI) | payer MEDICARE | END | disposition home or self-care (01) | LOC: LAB SHORT 13:18 | DX: N39.0 Urinary tract infection, site not specified (principal); N89.8 Other specified noninflammatory disorders of vagina | CPT/HCPCS: 87070; 87086; 87205 ==

== ENCOUNTER → 2021-10-08 | Outpatient (CLI) | payer MEDICARE | END | disposition home or self-care (01) | LOC: LAB 07:25 → LAB SHORT 07:25 | DX: D23.39 Other benign neoplasm of skin of other parts of face (principal); L82.1 Other seborrheic keratosis | CPT/HCPCS: 88305 ==

== ENCOUNTER → 2022-01-07 | Outpatient (CLI) | payer MEDICARE | END | disposition home or self-care (01) | LOC: LAB SHORT 15:19 | DX: D48.5 Neoplasm of uncertain behavior of skin (principal) | CPT/HCPCS: 88305 ==

== ENCOUNTER 2022-09-24 16:22 | Inpatient (IN) | payer OTHER ==
[~2022-09-24] VITALS: Ht 170.2 cm; Wt 59.0 kg
[~2022-09-24 16:22] MED LIST changes: +B-121000 MC3 PO; +FERSU300 PO; -Ferrous Sulfat325 M2 PO; -MIRALAX119 GM PO; +MIRALAX17 GM PO; +THERA-D2000 UNIT PO; -VITAMIN D2000 UNIT PO; -[UNRECOGNIZED DRUG - CODE] PO
[2022-09-24 17:25] LABS: BASOPHILS ABSOLUTE AUTO 0.02 K/mm3 (0.00-0.23); BASOPHILS PERCENT AUTO 0 % (0-2); EOSINOPHILS ABSOLUTE AUTO 0.03 K/mm3 (0.00-0.68); EOSINOPHILS PERCENT AUTO 0 % (0-6); Hematocrit 40.6 % (33.0-51.0); Hemoglobin 13.6 g/dL (11.5-16.0); IMMATURE GRAN ABSOLUTE AUTO 0.02 K/mm3 (0.00-0.10); IMMATURE GRAN PERCENT AUTO 0 % (0-1); LYMPHOCYTES ABSOLUTE AUTO 0.64 K/mm3 (0.84-5.20); LYMPHOCYTES PERCENT AUTO 7 % (21-46); MONOCYTES ABSOLUTE AUTO 0.42 K/mm3 (0.16-1.47); MONOCYTES PERCENT AUTO 5 % (4-13); Mean Corpuscular HGB 30.2 pg (26.0-34.0); Mean Corpuscular HGB Conc 33.5 g/dL (31.5-36.5); Mean Corpuscular Volume 90 fL (80-100); Mean Platelet Volume 9.7 fL (9.1-12.4); NEUTROPHILS ABSOLUTE AUTO 7.58 K/mm3 (1.96-9.15); NEUTROPHILS PERCENT AUTO 87 % (41-73); Platelet Count 307 K/mm3 (150-400); RDW Coefficient Variation 13.5 % (11.7-14.2); RDW Standard Deviation 44.5 fL (35.1-46.3); White Blood Cell Count 8.71 K/mm3 (4.00-11.30)
[2022-09-24 18:18] LABS: Albumin, Blood 3.6 g/dL (3.4-5.0); Albumin/Globulin Ratio 0.8 (0.8-1.8); Bun/Creatinine Ratio 20.1 (12.0-20.0); Calcium, Blood 9.5 mg/dL (8.5-10.1); Creatinine, Blood 1.89 mg/dL (0.40-1.00); Globulin, Blood 4.5 g/dL (2.2-4.0); Potassium, Blood 4.3 mmol/L (3.5-5.5); Total Protein, Blood 8.1 g/dL (6.4-8.2)
--- NOTE | 2022-09-24 21:28 | NUR ---
ADMIT NOTE HANDOFF RECEIVED FROM RETAIL SALES ASSOCIATELEANDER CRANE. PT ARRIVED TO FLOOR. PERSONAL POSSESSIONS WITH PT. PT ORIENTED TO UNIT. CALL BUTTON WITHIN REACH
--- NOTE | 2022-09-25 03:59 | NUR ---
SHIFT SUMMARY ADMITTED FROM ER THIS SHIFT FOR SBO. FULL CODE. PT IS NPO. IV FLUID INFUSING ORDERED. SHE IS A&O X4, ON RA, INDEPENDENT. SHE DENIES PAIN SO FAR THIS SHIFT. MONITORING LABS. HX OF RECTAL CANCER - ILEOSTOMY, HYDROURETERNEPHROSIS, AND SBO'S.
[2022-09-25 05:57] LABS: BASOPHILS ABSOLUTE AUTO 0.04 K/mm3 (0.00-0.23); BASOPHILS PERCENT AUTO 1 % (0-2); EOSINOPHILS ABSOLUTE AUTO 0.07 K/mm3 (0.00-0.68); EOSINOPHILS PERCENT AUTO 1 % (0-6); Hematocrit 35.6 % (33.0-51.0); Hemoglobin 11.9 g/dL (11.5-16.0); IMMATURE GRAN ABSOLUTE AUTO 0.02 K/mm3 (0.00-0.10); IMMATURE GRAN PERCENT AUTO 0 % (0-1); LYMPHOCYTES ABSOLUTE AUTO 1.46 K/mm3 (0.84-5.20); LYMPHOCYTES PERCENT AUTO 30 % (21-46); MONOCYTES ABSOLUTE AUTO 0.64 K/mm3 (0.16-1.47); MONOCYTES PERCENT AUTO 13 % (4-13); Mean Corpuscular HGB 29.9 pg (26.0-34.0); Mean Corpuscular HGB Conc 33.4 g/dL (31.5-36.5); Mean Corpuscular Volume 89 fL (80-100); Mean Platelet Volume 10.1 fL (9.1-12.4); NEUTROPHILS ABSOLUTE AUTO 2.67 K/mm3 (1.96-9.15); NEUTROPHILS PERCENT AUTO 55 % (41-73); Platelet Count 248 K/mm3 (150-400); RDW Coefficient Variation 13.7 % (11.7-14.2); RDW Standard Deviation 44.6 fL (35.1-46.3); Red Blood Cell Count 3.98 M/mm3 (3.80-5.20)
[2022-09-25 06:27] LABS: Albumin/Globulin Ratio 0.8 (0.8-1.8); Bilirubin, Total 0.8 mg/dL (0.1-1.0); Bun/Creatinine Ratio 20.5 (12.0-20.0); Calcium, Blood 8.8 mg/dL (8.5-10.1); Creatinine, Blood 1.76 mg/dL (0.40-1.00); Globulin, Blood 3.6 g/dL (2.2-4.0); Total Protein, Blood 6.6 g/dL (6.4-8.2)
--- NOTE | 2022-09-25 16:03 | NUR ---
Upon receiving a referral for spiritual care, I visit patient. Pt talks at length about her long medical history, her complicated family unit and her spiritual journey. We talk about what inspires her, what grounds her and her hopes for the future are. Our conversation is uplifting and highlights patient's amazing resiliency, high caliber of character and her deep rojas. Pt shares her concerns about family and the future as well. I normalize her experience, reinforce helpful attitudes and practices and provide therapeutic listening, gentle phone counselor and prayer. Pt responds well and shows signs of catharsis and an increase in peace. I will continue to remain available to patient and family.
--- NOTE | 2022-09-25 16:26 | NUR ---
SHIFT SUMMARY- PT INDEPENDANT IN ROOM. PT ROAMING HALLWAY TO HELP MOVE BOWEL FUNCTION. PASSING GAS ON OWN. C/O PAIN, MEDICATED PER EMAR. PT TRNSITING FROM NPO TO CLEAR, TOLERAING WELL. NO N/V NOTED. IV RUNING @ 75. IV PATENT. CALL LIGHT IN REACH. WILL CONTINUE TO MONITOR.
--- NOTE | 2022-09-26 03:26 | NUR ---
SHIFT SUMMARY NOC PT A/OX4. VSS. PT AMBULATING HALLWAY MULTIPLE TIMES DURING SHIFT TO PROMOTE PERESTALSIS. PT REPORTS FLATULANCE. NO C/O PN. PT STILL ON CLEAR LIQUID DIET. STOOL IN ILEOSTOMY IS GREEINISH/BROWN AND LIQUID. PT HAD NO C/O N/V. PT IV FLUSHES EASILY & SALINE LOCKED. PT IS CURRENTLY RESTING WITH RAILS UP, BED IN LOWEST POSITION, AND CALL LIGHT WITHIN REACH.
[2022-09-26 05:15] LABS: BASOPHILS ABSOLUTE AUTO 0.01 K/mm3 (0.00-0.23); BASOPHILS PERCENT AUTO 0 % (0-2); EOSINOPHILS ABSOLUTE AUTO 0.16 K/mm3 (0.00-0.68); EOSINOPHILS PERCENT AUTO 4 % (0-6); Hematocrit 33.8 % (33.0-51.0); Hemoglobin 11.3 g/dL (11.5-16.0); IMMATURE GRAN ABSOLUTE AUTO 0.01 K/mm3 (0.00-0.10); IMMATURE GRAN PERCENT AUTO 0 % (0-1); LYMPHOCYTES ABSOLUTE AUTO 1.28 K/mm3 (0.84-5.20); LYMPHOCYTES PERCENT AUTO 32 % (21-46); MONOCYTES ABSOLUTE AUTO 0.65 K/mm3 (0.16-1.47); MONOCYTES PERCENT AUTO 16 % (4-13); Mean Corpuscular HGB 30.1 pg (26.0-34.0); Mean Corpuscular HGB Conc 33.4 g/dL (31.5-36.5); Mean Corpuscular Volume 90 fL (80-100); Mean Platelet Volume 9.8 fL (9.1-12.4); NEUTROPHILS ABSOLUTE AUTO 1.95 K/mm3 (1.96-9.15); NEUTROPHILS PERCENT AUTO 48 % (41-73); Platelet Count 228 K/mm3 (150-400); RDW Coefficient Variation 13.8 % (11.7-14.2); RDW Standard Deviation 45.2 fL (35.1-46.3); Red Blood Cell Count 3.76 M/mm3 (3.80-5.20); White Blood Cell Count 4.06 K/mm3 (4.00-11.30)
[2022-09-26 05:38] LABS: Bun/Creatinine Ratio 17.2 (12.0-20.0); Calcium, Blood 8.7 mg/dL (8.5-10.1); Creatinine, Blood 1.57 mg/dL (0.40-1.00); Potassium, Blood 3.9 mmol/L (3.5-5.5)
--- NOTE | 2022-09-26 15:25 | NUR ---
DISCHARGE SUMMARY PT A/O X4; PLEASANT AND COOPERATIVE WITH CARE. NO COMPLAINTS THIS SHIFT AND REPORTS THAT ILEOSTOMY FUNCTION HAS RETURNED TO HER BASELINE. REPORTS THAT HER ABD IS TENDER BUT SHE IS NOT HAVING ANY CRAMPING PAIN. PT TOLERATED FULL LIQUID DIET WELL AND DC'D HOME WITH .
== END 2022-09-26 15:20 | disposition home or self-care (01) | DRG 389 ==
LOC: ER 16:22 → MEDS 19:57 → ER 21:05 → MEDS 21:05
PROVIDERS: Family Medicine; Physician Assistant; ADMIT Internal Medicine
DX: K56.600 Partial intestinal obstruction, unspecified as to cause (principal); N13.30 Unspecified hydronephrosis; N17.9 Acute kidney failure, unspecified; N18.30 Chronic kidney disease, stage 3 unspecified; E78.5 Hyperlipidemia, unspecified; I12.9 Hypertensive chronic kidney disease with stage 1 through stage 4 chronic kidney disease, or unspecified chronic kidney disease; E05.00 Thyrotoxicosis with diffuse goiter without thyrotoxic crisis or storm; C44.90 Unspecified malignant neoplasm of skin, unspecified; Z88.8 Allergy status to other drugs, medicaments and biological substances; Z88.0 Allergy status to penicillin; Z96.0 Presence of urogenital implants; Z79.899 Other long term (current) drug therapy; Z79.2 Long term (current) use of antibiotics; Z85.038 Personal history of other malignant neoplasm of large intestine; Z93.3 Colostomy status; Z90.710 Acquired absence of both cervix and uterus; Z98.890 Other specified postprocedural states; Z90.49 Acquired absence of other specified parts of digestive tract; Z87.891 Personal history of nicotine dependence; Z93.2 Ileostomy status; Z85.54 Personal history of malignant neoplasm of ureter; Z85.42 Personal history of malignant neoplasm of other parts of uterus; Z92.3 Personal history of irradiation
CPT/HCPCS: 36415; 74177; 80048; 80053; 83690; 85025; 93005; 93010; J1170; J1650; J7030; Q9967

== ENCOUNTER 2022-10-03 15:55 | Inpatient (IN) | payer OTHER ==
[~2022-10-03] VITALS: Ht 170.2 cm; Wt 60.0 kg
[2022-10-03 17:00] LABS: BASOPHILS ABSOLUTE AUTO 0.02 K/mm3 (0.00-0.23); BASOPHILS PERCENT AUTO 0 % (0-2); EOSINOPHILS ABSOLUTE AUTO 0.11 K/mm3 (0.00-0.68); EOSINOPHILS PERCENT AUTO 2 % (0-6); Hematocrit 37.1 % (33.0-51.0); Hemoglobin 13.1 g/dL (11.5-16.0); IMMATURE GRAN ABSOLUTE AUTO 0.02 K/mm3 (0.00-0.10); IMMATURE GRAN PERCENT AUTO 0 % (0-1); LYMPHOCYTES ABSOLUTE AUTO 1.82 K/mm3 (0.84-5.20); LYMPHOCYTES PERCENT AUTO 26 % (21-46); MONOCYTES ABSOLUTE AUTO 0.99 K/mm3 (0.16-1.47); MONOCYTES PERCENT AUTO 14 % (4-13); Mean Corpuscular HGB 30.3 pg (26.0-34.0); Mean Corpuscular HGB Conc 35.3 g/dL (31.5-36.5); Mean Corpuscular Volume 86 fL (80-100); Mean Platelet Volume 10.3 fL (9.1-12.4); NEUTROPHILS ABSOLUTE AUTO 4.07 K/mm3 (1.96-9.15); NEUTROPHILS PERCENT AUTO 58 % (41-73); Platelet Count 288 K/mm3 (150-400); RDW Coefficient Variation 12.7 % (11.7-14.2); RDW Standard Deviation 39.8 fL (35.1-46.3); Red Blood Cell Count 4.33 M/mm3 (3.80-5.20); White Blood Cell Count 7.03 K/mm3 (4.00-11.30)
[2022-10-03 17:28] LABS: Albumin, Blood 3.6 g/dL (3.4-5.0); Bilirubin, Total 0.5 mg/dL (0.1-1.0); Bun/Creatinine Ratio 19.5 (12.0-20.0); Calcium, Blood 9.1 mg/dL (8.5-10.1); Creatinine, Blood 2.61 mg/dL (0.40-1.00); Globulin, Blood 3.7 g/dL (2.2-4.0); Magnesium, Blood 2.2 mg/dL (1.6-2.4); Potassium, Blood 4.3 mmol/L (3.5-5.5); Total Protein, Blood 7.3 g/dL (6.4-8.2)
[2022-10-03 18:06] LABS: Source, Urine Clean Catch
[2022-10-03 18:08] LABS: Appearance, Urine Clear (Clear); Bilirubin, Urine Neg (Neg); Blood, Urine 1+ (Neg); Color, Urine Yellow (P-Yellow); Glucose Qualitative, Urine Neg (Neg); Ketones, Urine Neg (Neg); Leukocyte Esterase, Urine 2+ (Neg); Nitrite, Urine Neg (Neg); Protein, Urine 1+ (Neg); Specific Gravity, Urine 1.015 (1.003-1.022); Urobilinogen, Urine NORM (Normal)
[2022-10-03 18:29] LABS: Bacteria Few /hpf; Red Blood Cells, Urine 0-2 /hpf (0-2); Squamous Epithelial Cells Few /hpf (Few)
[2022-10-04 06:20] LABS: Bun/Creatinine Ratio 20.4 (12.0-20.0); Calcium, Blood 8.6 mg/dL (8.5-10.1); Creatinine, Blood 2.25 mg/dL (0.40-1.00); Potassium, Blood 3.4 mmol/L (3.5-5.5)
--- NOTE | 2022-10-04 12:46 | NUR ---
PT TRANSFERRED TO UNIT VIA STRETCHER, VSS, TRANSFERRED HERSELF TO BED, A/O X 4, PLEASANT/COOPERATIVE, ORIENTED TO CALL LIGHT AND ROOM
--- NOTE | 2022-10-04 13:28 | NUR ---
dr collier rounding on patient
--- NOTE | 2022-10-04 17:01 | NUR ---
SHIFT SUMMARY: VSS, NO ACUTE CHANGES. PT DENIES PAIN, A/O X 4, PLEASANT/COOPERATIVE, INDEPENDENT IN ROOM. PT HAS AN ILEOSTOMY SHE CHANGES HERSELF. PT'S HAS VISITED THIS SHIFT. DR KING ROUNDED THIS SHIFT. PT TOLERATING PO, VOIDING.
[2022-10-05 05:11] LABS: BASOPHILS ABSOLUTE AUTO 0.03 K/mm3 (0.00-0.23); BASOPHILS PERCENT AUTO 1 % (0-2); EOSINOPHILS ABSOLUTE AUTO 0.13 K/mm3 (0.00-0.68); EOSINOPHILS PERCENT AUTO 3 % (0-6); Hematocrit 32.7 % (33.0-51.0); Hemoglobin 11.3 g/dL (11.5-16.0); IMMATURE GRAN ABSOLUTE AUTO 0.01 K/mm3 (0.00-0.10); IMMATURE GRAN PERCENT AUTO 0 % (0-1); LYMPHOCYTES ABSOLUTE AUTO 1.31 K/mm3 (0.84-5.20); LYMPHOCYTES PERCENT AUTO 25 % (21-46); MONOCYTES ABSOLUTE AUTO 0.75 K/mm3 (0.16-1.47); MONOCYTES PERCENT AUTO 15 % (4-13); Mean Corpuscular HGB Conc 34.6 g/dL (31.5-36.5); Mean Corpuscular Volume 87 fL (80-100); Mean Platelet Volume 10.4 fL (9.1-12.4); NEUTROPHILS ABSOLUTE AUTO 2.93 K/mm3 (1.96-9.15); NEUTROPHILS PERCENT AUTO 57 % (41-73); Platelet Count 197 K/mm3 (150-400); RDW Coefficient Variation 12.6 % (11.7-14.2); RDW Standard Deviation 39.8 fL (35.1-46.3); Red Blood Cell Count 3.77 M/mm3 (3.80-5.20); White Blood Cell Count 5.16 K/mm3 (4.00-11.30)
--- NOTE | 2022-10-05 05:13 | NUR ---
SHIFT SUMMARY PT A&OX4, PLEASANT AND COOPERATIVE WITH CARE. NO ACUTE CHANGES, VSS. PT DENIES PAIN. INDEPENDENT IN ROOM/BATHROOM. PT MANAGES THEIR ILEOSTOMY CARE. TOLERATING PO INTAKE. PT RESTED MAJORITY OF SHIFT. CALLS APPROPRIATELY, CALL LIGHT WITHIN REACH.
[2022-10-05 05:35] LABS: Albumin, Blood 2.8 g/dL (3.4-5.0); Albumin/Globulin Ratio 0.8 (0.8-1.8); Bilirubin, Total 0.4 mg/dL (0.1-1.0); Calcium, Blood 8.3 mg/dL (8.5-10.1); Globulin, Blood 3.3 g/dL (2.2-4.0); Potassium, Blood 3.3 mmol/L (3.5-5.5); Total Protein, Blood 6.1 g/dL (6.4-8.2)
--- NOTE | 2022-10-05 12:08 | NUR ---
0700-RECVD REPORT FROM PREVIOUS SHIFT RN, PT SLEEPING, CALL LIGHT WITHIN REACH, BED IN LOWEST POSITIN, BED RAILS UP X 2
--- NOTE | 2022-10-05 12:10 | NUR ---
0830-PT HAS SHOWERED HERSELF 0900-DR KING ROUNDING
--- NOTE | 2022-10-06 04:59 | NUR ---
SHIFT SUMMARY PT A&OX4, PLEASANT AND COOPERATIVE WITH CARE. NO ACUTE CHANGES, VSS. NEW IV PLACED AT BEGINNING OF SHIFT, FLUIDS CONTINUED PER ORDERS. PT DENIES PAIN. INDEPENDENT IN ROOM/BATHROOM. TOLERATING PO INTAKE. PT RESTING COMFORTABLY. CALLS APPROPRIATELY, CALL LIGHT WITHIN REACH.
[2022-10-06 06:44] LABS: Albumin, Blood 2.9 g/dL (3.4-5.0); Albumin/Globulin Ratio 0.9 (0.8-1.8); Bilirubin, Total 0.4 mg/dL (0.1-1.0); Bun/Creatinine Ratio 13.6 (12.0-20.0); Calcium, Blood 8.7 mg/dL (8.5-10.1); Creatinine, Blood 1.54 mg/dL (0.40-1.00); Globulin, Blood 3.3 g/dL (2.2-4.0); Potassium, Blood 4.1 mmol/L (3.5-5.5); Total Protein, Blood 6.2 g/dL (6.4-8.2)
--- NOTE | 2022-10-06 12:41 | NUR ---
DISCHARGE PT PROVIDED WITH WRITTEN AND VERBAL DISCHARGE INSTRUCTIONS; SHE REPORTED UNDERSTANDING. PT CHOSE TO AMBULATE OUT INDEPENDENTLY WITHOUT ASSISTANCE. PT LEFT AT 1223.
== END 2022-10-06 12:31 | disposition home or self-care (01) | DRG 683 ==
LOC: ER 15:55 → ERHOLD 15:56 → SURS 10-04 12:44
PROVIDERS: Internal Medicine; Physician Assistant; ADMIT Internal Medicine
DX: N17.9 Acute kidney failure, unspecified (principal); E87.1 Hypo-osmolality and hyponatremia; N39.0 Urinary tract infection, site not specified; K56.609 Unspecified intestinal obstruction, unspecified as to partial versus complete obstruction; E86.0 Dehydration; N18.30 Chronic kidney disease, stage 3 unspecified; N26.1 Atrophy of kidney (terminal); M54.16 Radiculopathy, lumbar region; E87.6 Hypokalemia; M81.0 Age-related osteoporosis without current pathological fracture; Z87.891 Personal history of nicotine dependence; Z85.038 Personal history of other malignant neoplasm of large intestine; Z90.710 Acquired absence of both cervix and uterus; Z98.890 Other specified postprocedural states; Z93.2 Ileostomy status; Z88.0 Allergy status to penicillin; Z88.1 Allergy status to other antibiotic agents; Z15.09 Genetic susceptibility to other malignant neoplasm
CPT/HCPCS: 36415; 80048; 80053; 81001; 83735; 83935; 84300; 85025; 87086; 96374; 99284-25; A9270; G0378; J0696; J1644; J2405; J7030

== ENCOUNTER → 2022-10-03 | Outpatient (CLI) | payer OTHER ==
[2022-10-03 12:17] LABS: BASOPHILS ABSOLUTE AUTO 0.03 K/mm3 (0.00-0.23); BASOPHILS PERCENT AUTO 0 % (0-2); EOSINOPHILS PERCENT AUTO 1 % (0-6); Hematocrit 42.3 % (33.0-51.0); Hemoglobin 14.9 g/dL (11.5-16.0); IMMATURE GRAN ABSOLUTE AUTO 0.03 K/mm3 (0.00-0.10); IMMATURE GRAN PERCENT AUTO 0 % (0-1); LYMPHOCYTES ABSOLUTE AUTO 1.62 K/mm3 (0.84-5.20); LYMPHOCYTES PERCENT AUTO 22 % (21-46); MONOCYTES ABSOLUTE AUTO 0.97 K/mm3 (0.16-1.47); MONOCYTES PERCENT AUTO 13 % (4-13); Mean Corpuscular HGB Conc 35.2 g/dL (31.5-36.5); Mean Corpuscular Volume 85 fL (80-100); Mean Platelet Volume 10.9 fL (9.1-12.4); NEUTROPHILS ABSOLUTE AUTO 4.61 K/mm3 (1.96-9.15); NEUTROPHILS PERCENT AUTO 63 % (41-73); Platelet Count 337 K/mm3 (150-400); RDW Coefficient Variation 12.8 % (11.7-14.2); RDW Standard Deviation 39.3 fL (35.1-46.3); Red Blood Cell Count 4.96 M/mm3 (3.80-5.20); White Blood Cell Count 7.36 K/mm3 (4.00-11.30)
[2022-10-03 12:48] LABS: Albumin, Blood 4.3 g/dL (3.4-5.0); Albumin/Globulin Ratio 0.9 (0.8-1.8); Bilirubin, Total 0.7 mg/dL (0.1-1.0); Bun/Creatinine Ratio 16.6 (12.0-20.0); Calcium, Blood 9.7 mg/dL (8.5-10.1); Creatinine, Blood 3.2 mg/dL (0.40-1.00); Globulin, Blood 4.7 g/dL (2.2-4.0); Potassium, Blood 4.4 mmol/L (3.5-5.5)
== END | disposition home or self-care (01) ==
LOC: LAB SHORT 10:50 → LAB 10:50
PROVIDERS: Physician Assistant
DX: E86.0 Dehydration (principal)
CPT/HCPCS: 80053; 85025

== ENCOUNTER → 2023-01-13 | Outpatient (CLI) | payer OTHER | END | disposition home or self-care (01) | LOC: LAB SHORT 12:34 → PLD 12:34 | DX: D23.39 Other benign neoplasm of skin of other parts of face (principal); D23.62 Other benign neoplasm of skin of left upper limb, including shoulder | CPT/HCPCS: 88305 ==

== ENCOUNTER 2023-12-02 15:26 | Emergency (ER) | payer OTHER ==
[~2023-12-02] VITALS: Ht 170.2 cm; Wt 61.2 kg
[2023-12-02 15:55] VITALS: BP 192/124
[2023-12-02 16:19] LABS: BASOPHILS ABSOLUTE AUTO 0.04 K/mm3 (0.00-0.23); BASOPHILS PERCENT AUTO 1 % (0-2); EOSINOPHILS ABSOLUTE AUTO 0.11 K/mm3 (0.00-0.68); EOSINOPHILS PERCENT AUTO 1 % (0-6); Hematocrit 37.8 % (33.0-51.0); Hemoglobin 12.7 g/dL (11.5-16.0); IMMATURE GRAN ABSOLUTE AUTO 0.02 K/mm3 (0.00-0.10); IMMATURE GRAN PERCENT AUTO 0 % (0-1); LYMPHOCYTES ABSOLUTE AUTO 0.97 K/mm3 (0.84-5.20); LYMPHOCYTES PERCENT AUTO 12 % (21-46); MONOCYTES ABSOLUTE AUTO 0.55 K/mm3 (0.16-1.47); MONOCYTES PERCENT AUTO 7 % (4-13); Mean Corpuscular HGB 29.9 pg (26.0-34.0); Mean Corpuscular HGB Conc 33.6 g/dL (31.5-36.5); Mean Corpuscular Volume 89 fL (80-100); Mean Platelet Volume 9.2 fL (9.1-12.4); NEUTROPHILS ABSOLUTE AUTO 6.42 K/mm3 (1.96-9.15); NEUTROPHILS PERCENT AUTO 79 % (41-73); Platelet Count 305 K/mm3 (150-400); RDW Coefficient Variation 13.1 % (11.7-14.2); RDW Standard Deviation 42.5 fL (35.1-46.3); Red Blood Cell Count 4.25 M/mm3 (3.80-5.20); White Blood Cell Count 8.11 K/mm3 (4.00-11.30)
[2023-12-02 16:42] LABS: Albumin, Blood 3.7 g/dL (3.4-5.0); Albumin/Globulin Ratio 0.8 (0.8-1.8); Bilirubin, Total 0.5 mg/dL (0.1-1.0); Bun/Creatinine Ratio 18.4 (12.0-20.0); Creatinine, Blood 1.36 mg/dL (0.40-1.00); Globulin, Blood 4.4 g/dL (2.2-4.0); Potassium, Blood 4.1 mmol/L (3.5-5.5); Total Protein, Blood 8.1 g/dL (6.4-8.2)
[2023-12-02 18:38] LABS: Source, Urine Clean Catch
[2023-12-02 18:44] LABS: Appearance, Urine Hazy (Clear); Bilirubin, Urine Neg (Neg); Blood, Urine 2+ (Neg); Color, Urine Yellow (P-Yellow); Glucose Qualitative, Urine Neg (Neg); Ketones, Urine Neg (Neg); Leukocyte Esterase, Urine 3+ (Neg); Nitrite, Urine Pos (Neg); Protein, Urine 2+ (Neg); Specific Gravity, Urine 1.015 (1.003-1.022); Urobilinogen, Urine NORM (Normal)
[2023-12-02 18:50] LABS: Bacteria Many /hpf; Squamous Epithelial Cells Few /hpf (Few); White Blood Cells, Urine 25-50 /hpf (0-5)
[2023-12-02] MEDS ORDERED: CefTRIAXone Sodium 1,000 MG in NS 50 ML IV ONE (20:30)
[2023-12-02] MEDS ORDERED: Cefpodoxime Pr100 MG PO (20:49)
== END 2023-12-02 20:56 | disposition home or self-care (01) ==
LOC: ER 15:26
PROVIDERS: Emergency Medicine; Physician Assistant
DX: N39.0 Urinary tract infection, site not specified (principal); Z93.2 Ileostomy status; Z90.49 Acquired absence of other specified parts of digestive tract; Z88.0 Allergy status to penicillin; Z88.1 Allergy status to other antibiotic agents; Z87.891 Personal history of nicotine dependence; Z85.038 Personal history of other malignant neoplasm of large intestine
CPT/HCPCS: 80053; 81001; 83690; 85025; 87086; 96374; 99284-25; J0696

== ENCOUNTER → 2023-12-16 | Outpatient (CLI) | payer OTHER ==
[~2023-12-16] MED LIST changes: +Cefpodoxime Pr100 MG PO
== END | disposition home or self-care (01) ==
LOC: LAB 15:45 → LAB SHORT 15:45
DX: N39.0 Urinary tract infection, site not specified (principal)
CPT/HCPCS: 87077; 87086; 87186

== ENCOUNTER → 2024-05-17 | Outpatient (CLI) | payer OTHER ==
[2024-05-18 12:29] LABS: Bacterial Vaginosis PCR Negative (NEGATIVE)
[2024-05-18 12:30] LABS: Candida Group, PCR DETECTED (NOT DETECT); Candida glabrata-krusei, PCR DETECTED (NOT DETECT)
== END | disposition home or self-care (01) ==
LOC: LAB 20:16 → LAB SHORT 20:16
PROVIDERS: Family Medicine
DX: N89.8 Other specified noninflammatory disorders of vagina (principal)
CPT/HCPCS: 87481; 87661; 87801

== ENCOUNTER 2024-06-22 13:08 | Inpatient (IN) | payer OTHER ==
[~2024-06-22] VITALS: Ht 167.6 cm; Wt 53.5 kg
--- NOTE | 2024-06-22 13:29 | NUR ---
PATIENT ASSIGNED TO THIS RN DIRECT ADMIT. CHART REVIEW PERFORMED.
--- NOTE | 2024-06-22 13:44 | NUR ---
PATIENT ARRIVED TO MEDICAL FLOOR AT 1340. BED WEIGHT UPON ARRIVAL 53.5, 22G SHAUN. COLOSTOMY RLQ. SMALL LESION SACRAL REGION C/W Bx DURING LAST HOSPITALIZATION.
[2024-06-22 13:47] VITALS: BP 108/71
[2024-06-22] MEDS ORDERED: Lactated Ringer's 1,000 ML IV SCH (14:30)
[2024-06-22] MEDS ORDERED: Ondansetron HCl 2 MG / ML 2ML Vial IV PRN (14:40)
[2024-06-22] MEDS ORDERED: FentaNYL 25 MCG Patch TOP SCH (15:15)
[2024-06-22] MEDS ORDERED: Acetaminophen 325 MG TABLET PO PRN (15:15)
[2024-06-22] MEDS ORDERED: Heparin Sodium,Porcine 5,000 UNIT/0.5 ML SDV SC SCH (16:00)
--- NOTE | 2024-06-22 17:45 | NUR ---
DR ASCENCIO TO BEDSIDE FOR CONSULT.
--- NOTE | 2024-06-22 18:38 | NUR ---
DAY SHIFT SUMMARY: DIRECT ADMIT FROM [facility] AFTER PRESENTING FOR C/O N/V x3 DAYS. A&Ox4. PLEASANT AND COOPERATIVE WITH CARE. CALLS APPROPRIATELY AND IS ABLE TO ADVOCATE NEEDS EFFECTIVELY. AMBULATES INDEPENDENTLY AND WILL CALL FOR SBA PRN. PAIN CONTROLLED. MEDICATED x1 C/O NAUSEA. DR. ASCENCIO, ONCOLOGY, TO BEDSIDE FOR CONSULT. LR @ 125mL/hr ONGOING. 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 ASSISTS HER WITH CLEANING AT HOME; SHE REQUESTS ASSISTANCE WITH CLEANING USING WIPE AND BARRIER CREAM. BED IN LOWEST POSITION. CALL LIGHT WITHIN REACH. ALL NEEDS MET. REPORT TO ONCOMING RN.
[2024-06-22 21:21] VITALS: BP 155/78
[2024-06-23] MEDS ORDERED: Lidocaine 2% Jelly Uro-Jet UR ONE (00:45)
--- NOTE | 2024-06-23 01:26 | NUR ---
PATIENT BLADDER SCAN WAS GREATER THAN 400ML. ABLE TO EASILY ST CATH. AFTER USING UROJET LIDOCAINE, PER PATIENT REQUEST. 500ML REMOVED. TOLERATED WELL.
[2024-06-23] MEDS ORDERED: HYDROcodone 5-APAP 325 TAB PO PRN (02:40)
[2024-06-23 03:56] LABS: Source, Urine Straight Cath
[2024-06-23 04:11] LABS: Appearance, Urine Turbid (Clear); Bilirubin, Urine Neg (Neg); Blood, Urine 3+ (Neg); Color, Urine Yellow (P-Yellow); Glucose Qualitative, Urine Neg (Neg); Ketones, Urine Neg (Neg); Leukocyte Esterase, Urine 3+ (Neg); Nitrite, Urine Pos (Neg); Protein, Urine 3+ (Neg); Urobilinogen, Urine NORM (Normal)
--- NOTE | 2024-06-23 04:16 | NUR ---
PT AWAKE ALERT AND ORIENTED X4 AT SHIFT CHANGE. POOR URINE OUTPUT NOTED. BLADDER SCAN DONE, NOTED 420 MLS. STRAIGHT CATH DONE PER DR ORDERS. 550 KML RETURN NOTED. FENTANYL PATCH NOTED TO LEFT NECK. PT CONTINUES TO C/O PAIN. MD NOTIFIED. ORDERS RECEIVED.PT MEDICATED PER . ORDERS. PT RESTING QUOIETLY IN BED WITH EYES CLOSED AT THIS TIME.
[2024-06-23 04:33] LABS: White Blood Cells, Urine TNTC /hpf (0-5)
[2024-06-23 04:34] LABS: Bacteria Many /hpf; Red Blood Cells, Urine 0-2 /hpf (0-2); Squamous Epithelial Cells Few /hpf (Few)
[2024-06-23 05:22] LABS: BASOPHILS ABSOLUTE AUTO 0.07 K/mm3 (0.00-0.23); BASOPHILS PERCENT AUTO 1 % (0-2); EOSINOPHILS ABSOLUTE AUTO 0.16 K/mm3 (0.00-0.68); EOSINOPHILS PERCENT AUTO 1 % (0-6); Hematocrit 35.3 % (33.0-51.0); Hemoglobin 11.7 g/dL (11.5-16.0); IMMATURE GRAN ABSOLUTE AUTO 0.06 K/mm3 (0.00-0.10); IMMATURE GRAN PERCENT AUTO 1 % (0-1); LYMPHOCYTES PERCENT AUTO 22 % (21-46); MONOCYTES ABSOLUTE AUTO 1.03 K/mm3 (0.16-1.47); MONOCYTES PERCENT AUTO 9 % (4-13); Mean Corpuscular HGB 28.6 pg (26.0-34.0); Mean Corpuscular HGB Conc 33.1 g/dL (31.5-36.5); Mean Corpuscular Volume 86 fL (80-100); Mean Platelet Volume 9.5 fL (9.1-12.4); NEUTROPHILS ABSOLUTE AUTO 7.66 K/mm3 (1.96-9.15); NEUTROPHILS PERCENT AUTO 67 % (41-73); Platelet Count 359 K/mm3 (150-400); RDW Coefficient Variation 14.1 % (11.7-14.2); RDW Standard Deviation 44.3 fL (35.1-46.3); Red Blood Cell Count 4.09 M/mm3 (3.80-5.20); White Blood Cell Count 11.48 K/mm3 (4.00-11.30)
[2024-06-23 05:26] VITALS: BP 152/82
[2024-06-23 05:49] LABS: Albumin, Blood 2.3 g/dL (3.4-5.0); Albumin/Globulin Ratio 0.5 (0.8-1.8); Bilirubin, Total 0.5 mg/dL (0.1-1.0); Bun/Creatinine Ratio 34.2 (12.0-20.0); Creatinine, Blood 1.61 mg/dL (0.40-1.00); Globulin, Blood 4.3 g/dL (2.2-4.0); Potassium, Blood 4.1 mmol/L (3.5-5.5); Total Protein, Blood 6.6 g/dL (6.4-8.2)
[2024-06-23] MEDS ORDERED: LevoFLOXacin 750 MG/D5W 150ML 150 ML IV SCH (06:00)
[2024-06-23 08:14] VITALS: BP 139/82
--- NOTE | 2024-06-23 08:19 | NUR ---
PATIENT TACHYPNIC UPON VITAL SIGNS CHECK. C/O SEVERE NAUSEA; MEDICATED PRN ZOFRAN. WILL RECHECK V/S 1/2 HOUR.
[2024-06-23] MEDS ORDERED: FentaNYL 25 MCG Patch TOP SCH (09:00)
--- NOTE | 2024-06-23 12:45 | NUR ---
CALL TO DR MELENDEZ TO UPDATE: PT FEELS THOUGH SHE'S "FULL" AND HAS POOR APPETTIE. WILL LIKELY PLACE ORDERS FOR IMAGING; AWAITING NEW ORDERS.
--- NOTE | 2024-06-23 13:23 | NUR ---
PATIENT CALLED THIS RN TO BEDSIDE REQUESTING TO DISCUSS "COMFORT MEASURES" SHE DOES NOT UNDERSTAND WHY SHE IS, AGAIN, HAVING BLOOD SUGARS OBTAINED AND TREATED WITH INSULIN SHE WAS UNDER THE IMPRESSION SHE'D ALREADY DETERMINED AND DISCUSSED HER DECISION TO DECLINE SUCH Tx, HOPING TO ONLY TREAT PAIN AND DISCOMFORT. DISCUSSED WITH PALLIATIVE CARE NURSE, DAVID, WHO WILL PROCESS COMFORT CARE ORDERS AND DISCUSS LOGISTICS WITH PT.
[2024-06-23 15:05] VITALS: BP 149/71
--- NOTE | 2024-06-23 17:30 | NUR ---
VOICEMAIL FOR DR MELENDEZ TO CALL BACK. REQUEST FOR UROJET PRIOR TO STRAIGHT CATH INSERTION.
--- NOTE | 2024-06-23 17:36 | NUR ---
"Spiritual Care | Staff Referral At the request of a PT who knows the Pt. I was called to Pts. bedside where she welcomed my visit. Pt. is pleasant and a life review is facilitated. When considering matters of rojas and belief, Pt. did display some a appropriate grieving emotion. Pastoral care is given at bedside to good affect. Prayed with the Pt. before this Pt. was called away to an ED trauma. Pt. verbalized gratitude for the spiritual care visit and welcomed this santa's helper to return."
--- NOTE | 2024-06-23 18:01 | NUR ---
CALL BACK FROM DR MELENDEZ: OKAY FOR STRAIGHT CATH WITH URO JET. WILL DISCUSS MCDONALD CATH WITH HER TOMORROW WHEN HE SEES HER, LAST TIME SHE WAS HERE, SACRAL MASS WAS CAUSING URINARY RETENTION AND MAY BE THE CASE THIS TIME, WELL.
[2024-06-23] MEDS ORDERED: Lidocaine 2% Jelly Uro-Jet TOP PRN (18:15)
--- NOTE | 2024-06-23 18:43 | NUR ---
DAY SHIFT SUMMARY: A&Ox4. PLEASANT AND COOPERATIVE WITH CARE. CALLS APPROPRIATELY AND IS ABLE TO ADVOCATE NEEDS EFFECTIVELY. AMBULATION. COLOSTOMY PATENT AND COLLECTING LIQUID GREEN STOOL. LEVAQUIN STARTED LAST NIGHT FOR POSITIVE UTI UPON SENIOR BUYER OF UA BY LAB; Cx PENDING. VOIDING SMALL AMOUNTS DESPITE 2 BAGS LR TODAY. BLADDER SCAN YIELDED >400mL URINE. ORDERS FOR STRAIGHT CATH IF >400. OBTAINED ORDER FOR UROJET AT 1800. CURRENT WAITING FOR ACTIVATION OF LIDOCAINE PRIOR TO CATH PROCEDURE. MEDICATED x2 PRN ZOFRAN C / O NAUSEA. DESCRIBES FEELING FULL AND POINTS TO TOP OF STOMACH. DECREASED APPETITE. STATES SHE HAS HAD HEIGHTENED SENSE OF SMELL FOR THE LAST TWO WEEKS AND NOTHING SMELLS OR SOUNDS GOOD AND EVEN BECOMES NAUSEATED AT THE SMELL OF CERTAIN FOODS. TELE SINUS c PVCs @ 80bpm. MEDICATED PRN PAIN TO AVOID CHASING PAIN. SHE DOES HAVE SOME DISCOMFORT IN BUTTOCK SECONDARY TO SACRAL MASS. BED IN LOWEST POSITION. CALL LIGHT WITHIN REACH. ALL NEEDS MET. REPORT TO ONCOMING RN.
[2024-06-23 19:48] VITALS: BP 139/81
[2024-06-24 02:42] VITALS: BP 140/75
[2024-06-24 04:30] LABS: BASOPHILS ABSOLUTE AUTO 0.05 K/mm3 (0.00-0.23); BASOPHILS PERCENT AUTO 1 % (0-2); EOSINOPHILS ABSOLUTE AUTO 0.12 K/mm3 (0.00-0.68); EOSINOPHILS PERCENT AUTO 1 % (0-6); Hematocrit 34.5 % (33.0-51.0); Hemoglobin 11.2 g/dL (11.5-16.0); IMMATURE GRAN ABSOLUTE AUTO 0.07 K/mm3 (0.00-0.10); IMMATURE GRAN PERCENT AUTO 1 % (0-1); LYMPHOCYTES ABSOLUTE AUTO 2.09 K/mm3 (0.84-5.20); LYMPHOCYTES PERCENT AUTO 21 % (21-46); MONOCYTES ABSOLUTE AUTO 1.01 K/mm3 (0.16-1.47); MONOCYTES PERCENT AUTO 10 % (4-13); Mean Corpuscular HGB 28.4 pg (26.0-34.0); Mean Corpuscular HGB Conc 32.5 g/dL (31.5-36.5); Mean Corpuscular Volume 87 fL (80-100); Mean Platelet Volume 9.6 fL (9.1-12.4); NEUTROPHILS PERCENT AUTO 67 % (41-73); Platelet Count 300 K/mm3 (150-400); Red Blood Cell Count 3.95 M/mm3 (3.80-5.20); White Blood Cell Count 10.14 K/mm3 (4.00-11.30)
[2024-06-24 05:14] LABS: Albumin, Blood 2.1 g/dL (3.4-5.0); Albumin/Globulin Ratio 0.6 (0.8-1.8); Bilirubin, Total 0.5 mg/dL (0.1-1.0); Bun/Creatinine Ratio 23.8 (12.0-20.0); Calcium, Blood 8.6 mg/dL (8.5-10.1); Creatinine, Blood 1.51 mg/dL (0.40-1.00); Globulin, Blood 3.8 g/dL (2.2-4.0); Potassium, Blood 3.9 mmol/L (3.5-5.5); Total Protein, Blood 5.9 g/dL (6.4-8.2)
--- NOTE | 2024-06-24 05:43 | NUR ---
END OF SHIFT SUMMARY PT A&OX4. STRAIGHT CATH X1 FOR RETENTION >500 PER BLADDER SCAN. PT VOIDING WELL, CLOUDY YELLOW URINE. ABD/LLE PAIN, MEDICATED X1 WITH GOOD RELIEF. NO ACUTE EVENTS OVERNIGHT.
[2024-06-24 07:29] VITALS: BP 159/76
[2024-06-24 11:02] LABS: Source, Urine Foley catheter
[2024-06-24 11:21] LABS: Bilirubin, Urine Neg (Neg); Blood, Urine Neg (Neg); Color, Urine Yellow (P-Yellow); Glucose Qualitative, Urine Neg (Neg); Ketones, Urine Neg (Neg); Leukocyte Esterase, Urine Neg (Neg); Nitrite, Urine Neg (Neg); Protein, Urine Neg (Neg); Urobilinogen, Urine NORM (Normal); pH, Urine 6.5 (5.0-8.0)
[2024-06-24 11:24] LABS: Appearance, Urine Clear (Clear)
[2024-06-24] MEDS ORDERED: Polyethylene Glycol 3350 17 gm PO PRN (14:35)
[2024-06-24] MEDS ORDERED: Docusate Sodium/Senna 1 Tab PO PRN (14:35)
[2024-06-24 15:44] VITALS: BP 150/80
--- NOTE | 2024-06-24 16:48 | NUR ---
SHIFT SUMMARY: PATIENT IS A&OX4-INDEPENDENT; MAKES HER NEEDS KNOWN. SHE CONTINUES TO C/O PAIN IN HER MADELAINE/BOTTOM AREA; PAIN MEDS NEEDED. A MCDONALD WAS PLACED THIS MORNING DUE TO CONTINUED RETENTION AND STRAIGHT CATHERIZATION BEING DONE X3 TIMES. PATIENT TOLERATING MCDONALD WELL AND SHE MAINTAINS HER OWN OSTOMY BAG. SHE IS IN BED, CALL LIGHT WITHIN REACH, GETTING IV FLUIDS CONTINIOUSLY, CALL LIGHT WITHIN REACH, NO SIGNS OR SYMPTOMS OF DISTRESS, PLAN OF CARE ONGOING.
[2024-06-24 19:42] VITALS: BP 144/75
[2024-06-25 04:26] VITALS: BP 147/76
[2024-06-25 04:49] LABS: BASOPHILS ABSOLUTE AUTO 0.05 K/mm3 (0.00-0.23); BASOPHILS PERCENT AUTO 1 % (0-2); EOSINOPHILS ABSOLUTE AUTO 0.23 K/mm3 (0.00-0.68); EOSINOPHILS PERCENT AUTO 2 % (0-6); Hematocrit 34.2 % (33.0-51.0); Hemoglobin 11.4 g/dL (11.5-16.0); IMMATURE GRAN ABSOLUTE AUTO 0.06 K/mm3 (0.00-0.10); IMMATURE GRAN PERCENT AUTO 1 % (0-1); LYMPHOCYTES ABSOLUTE AUTO 2.32 K/mm3 (0.84-5.20); LYMPHOCYTES PERCENT AUTO 24 % (21-46); MONOCYTES ABSOLUTE AUTO 0.97 K/mm3 (0.16-1.47); MONOCYTES PERCENT AUTO 10 % (4-13); Mean Corpuscular HGB 28.6 pg (26.0-34.0); Mean Corpuscular HGB Conc 33.3 g/dL (31.5-36.5); Mean Corpuscular Volume 86 fL (80-100); Mean Platelet Volume 9.8 fL (9.1-12.4); NEUTROPHILS ABSOLUTE AUTO 6.08 K/mm3 (1.96-9.15); NEUTROPHILS PERCENT AUTO 63 % (41-73); Platelet Count 300 K/mm3 (150-400); RDW Standard Deviation 43.7 fL (35.1-46.3); Red Blood Cell Count 3.99 M/mm3 (3.80-5.20); White Blood Cell Count 9.71 K/mm3 (4.00-11.30)
--- NOTE | 2024-06-25 05:09 | NUR ---
END OF SHIFT SUMMARY PT C/O LEAKING VIA MCDONALD. GOOD CATHETER CARE PROVIDED, DISCOVERED "LEAKING" NOT FROM CATHETER BUT INSTEAD VAGINAL DISCHARGE FROM ENTEROVAGINAL FISTULA. PT AGREES DISCHARGE IS SIMILAR IN PRESENTATION/COLOR/ODOR BEFORE. URINE IS CLEAR YELLOW IN COLOR, DISCHARGE CLOUDY/THICKER, YELLOW AND MALODOROUS. PT MANAGING RLQ COLOSTOMY, LARGE AMOUNT OF WATERY BROWN/GREEN STOOL. PT DECLINED ANY BOWEL MEDS. MEDICATED FOR PAIN TO LLE PER EMAR WITH GOOD EFFECT.
[2024-06-25 05:17] LABS: Bun/Creatinine Ratio 19.1 (12.0-20.0); Calcium, Blood 8.6 mg/dL (8.5-10.1); Creatinine, Blood 1.41 mg/dL (0.40-1.00); Potassium, Blood 3.7 mmol/L (3.5-5.5)
[2024-06-25 07:34] VITALS: BP 150/83
[2024-06-25] MEDS ORDERED: HYDROmorphone HCl/Pf 1MG SYR IV PRN (09:05)
[2024-06-25] MEDS ORDERED: HYDROcodone 7.5-APAP 325 TAB PO PRN (09:35)
--- NOTE | 2024-06-25 10:37 | NUR ---
Pt. is awake in bed and welcomes my visit. Pt. is pleasant. Spouse is at bedside. Facilitated an update with the Pt. and pt. verbalized expectaions that her plan of care would include discharge tomorrow. Listen with emapthy and a calm presence. Pt. displays evidence of a strong rojas. Continue to build rapport, as I have known the family from the community. Prayed with Pt. Both Pt. and and spouse verbalize gratitude for the spiritual care visit.
[2024-06-25 14:42] VITALS: BP 147/79
--- NOTE | 2024-06-25 15:46 | NUR ---
SHIFT SUMMARY: PATIENT IS A&OX4/INDEPENDENT; MAKES NEEDS KNOWN. HER PAIN BEEN MORE SEVERE TODAY REQUIRING HIGHER DOSE OF PAIN MEDICATION; PAIN MANAGED AT THIS TIME. HER IV FLUIDS WERE STOPPED TODAY AND HAS BEEN TAKING IN ORAL FLUIDS. NEPHROLOGY CONSULT PLACED TODAY AND POSSIBLE DISCHARGE 06/26/24. PATIENT IS IN BED, CALL LIGHT WITHIN REACH, NO SIGNS OR SYMPTOMS OF DISTRESS, PLAN OF CARE ONGOING.
[2024-06-25 19:26] VITALS: BP 141/79
[2024-06-26 04:07] VITALS: BP 153/82
[2024-06-26 05:25] LABS: BASOPHILS ABSOLUTE AUTO 0.05 K/mm3 (0.00-0.23); BASOPHILS PERCENT AUTO 1 % (0-2); EOSINOPHILS ABSOLUTE AUTO 0.21 K/mm3 (0.00-0.68); EOSINOPHILS PERCENT AUTO 2 % (0-6); Hematocrit 34.5 % (33.0-51.0); Hemoglobin 11.3 g/dL (11.5-16.0); IMMATURE GRAN ABSOLUTE AUTO 0.07 K/mm3 (0.00-0.10); IMMATURE GRAN PERCENT AUTO 1 % (0-1); LYMPHOCYTES ABSOLUTE AUTO 2.38 K/mm3 (0.84-5.20); LYMPHOCYTES PERCENT AUTO 24 % (21-46); MONOCYTES ABSOLUTE AUTO 0.92 K/mm3 (0.16-1.47); MONOCYTES PERCENT AUTO 9 % (4-13); Mean Corpuscular HGB 28.3 pg (26.0-34.0); Mean Corpuscular HGB Conc 32.8 g/dL (31.5-36.5); Mean Corpuscular Volume 86 fL (80-100); NEUTROPHILS ABSOLUTE AUTO 6.17 K/mm3 (1.96-9.15); NEUTROPHILS PERCENT AUTO 63 % (41-73); Platelet Count 314 K/mm3 (150-400); RDW Standard Deviation 43.5 fL (35.1-46.3)
[2024-06-26 05:51] LABS: Bun/Creatinine Ratio 14.9 (12.0-20.0); Calcium, Blood 9.1 mg/dL (8.5-10.1); Creatinine, Blood 1.48 mg/dL (0.40-1.00); Potassium, Blood 3.7 mmol/L (3.5-5.5)
--- NOTE | 2024-06-26 05:51 | NUR ---
END OF SHIFT SUMMARY PT CONTINUES TO HAVE SOME LLE PAIN BUT MORE CONTROLLED, AGREES WITH PLAN TO TAKE NORCO MORE CONSISTANTLY TO PREVENT SEVERE PAIN. MCDONALD DRAINING CLEAR YELLOW URINE. CONTINUES TO HAVE SOME YELLOW/THICK VAGINAL DISCHARGE. MADELAINE/CATHETER CARE COMPLETED. NO ACUTE EVENTS OVERNIGHT.
[2024-06-26 07:30] VITALS: BP 140/79
[2024-06-26] MEDS ORDERED: Enoxaparin 30 MG/0.3 ML SYR SC SCH (09:00)
[2024-06-26] MEDS ORDERED: DOCUZEN 8.6-501 EACH PO (10:59)
[2024-06-26] MEDS ORDERED: Norco 7.5-3251 EACH PO (11:00)
[2024-06-26] MEDS ORDERED: MIRALAX17 GM PO (11:00)
[2024-06-26] MEDS ORDERED: LEVO750 PO (11:01)
[2024-06-26] MEDS ORDERED: Diltiazem HCl 180 MG Cap.CD PO SCH (12:00)
[2024-06-26] MEDS ORDERED: DILT180 PO (13:15)
[2024-06-26 14:56] VITALS: BP 136/78
[2024-06-26 14:58] VITALS: BP 124/72
[2024-06-26 14:59] VITALS: BP 113/76
--- NOTE | 2024-06-26 17:30 | NUR ---
PATIENT IS A&OX4. STARTED ON NEW MED DILTIAZEM, PATIENT STATED NEW MED MADE HER FEEL WOOZY AND UNSTABLE. ENCOURAGE PATIENT TO CALL FOR SBA. PATIENT HAS MCDONALD CATHETER FOR URINE RETENTION, MCDONALD IS PATENT AND DRAINING WELL. PATIENT HAS A COLOSTOMY IN THE RLQ, IS PATENT PATIENT MANAGES COLOSTOMY. PATIENTS BED IS IN THE LOWEST POSITION AND CALL LIGHT IS WITHIN REACH.
--- NOTE | 2024-06-26 17:56 | NUR ---
THIS TRANSCRIPTION COORDINATOR HAS REVIEWED AND AGREES WITH ALL NOTES AND ASSESSMENTS BY YOLIS MANUEL.
[2024-06-26 19:20] VITALS: BP 131/66
[2024-06-27 04:30] VITALS: BP 152/72
[2024-06-27 04:38] LABS: BASOPHILS ABSOLUTE AUTO 0.05 K/mm3 (0.00-0.23); BASOPHILS PERCENT AUTO 1 % (0-2); EOSINOPHILS ABSOLUTE AUTO 0.27 K/mm3 (0.00-0.68); EOSINOPHILS PERCENT AUTO 3 % (0-6); Hematocrit 37.2 % (33.0-51.0); Hemoglobin 12.4 g/dL (11.5-16.0); IMMATURE GRAN ABSOLUTE AUTO 0.07 K/mm3 (0.00-0.10); IMMATURE GRAN PERCENT AUTO 1 % (0-1); LYMPHOCYTES ABSOLUTE AUTO 2.05 K/mm3 (0.84-5.20); LYMPHOCYTES PERCENT AUTO 21 % (21-46); MONOCYTES PERCENT AUTO 9 % (4-13); Mean Corpuscular HGB 28.8 pg (26.0-34.0); Mean Corpuscular HGB Conc 33.3 g/dL (31.5-36.5); Mean Corpuscular Volume 86 fL (80-100); Mean Platelet Volume 9.9 fL (9.1-12.4); NEUTROPHILS ABSOLUTE AUTO 6.53 K/mm3 (1.96-9.15); NEUTROPHILS PERCENT AUTO 66 % (41-73); Platelet Count 292 K/mm3 (150-400); RDW Coefficient Variation 14.1 % (11.7-14.2); RDW Standard Deviation 44.7 fL (35.1-46.3); Red Blood Cell Count 4.31 M/mm3 (3.80-5.20); White Blood Cell Count 9.87 K/mm3 (4.00-11.30)
[2024-06-27 04:58] LABS: Bun/Creatinine Ratio 15.8 (12.0-20.0); Calcium, Blood 9.4 mg/dL (8.5-10.1); Creatinine, Blood 1.46 mg/dL (0.40-1.00); Potassium, Blood 3.8 mmol/L (3.5-5.5)
--- NOTE | 2024-06-27 05:09 | NUR ---
SHIFT SUMMARY NOC PT A/O X 4. PLEASANT AND COOPERATIVE WITH CARE. VSS. NO ACUTE CHANGES TO REPORT. ON TELE SINUS RHYTHM IN 70'S. PT LLE PAIN BEING MANAGED Q6H PER EMAR. MCDONALD IN PLACE FOR RETENTION PATENT AND DRAINING TO GRAVITY. ESTABLISHED RLQ OSTOMY WITH BROWN STOOL THAT PT SELF MANAGES. PT CALLING FOR SBA WHEN GOING TO BATHROOM DUE TO NEW RX CARDIZEM WHICH MAKES PT DIZZY WHEN AMBULATING. PT EXPECTING TO DISCHARGE HOME TODAY. PT CURRENTLY RESTING WITH BED IN LOWEST POSITION, AND CALL LIGHT WITHIN REACH.
[2024-06-27 07:29] VITALS: BP 127/73
--- NOTE | 2024-06-27 11:57 | NUR ---
PATIENT DISCHARGED AT 1145. A&OX4 AND PLEASANT. PATIENT TRANSPORTED VIA WHEELCHAIR TO VEHICLE. PICKED PATIENT UP FOR TRANSPORT HOME. WENT HOME WITH A MCDONALD. PATIENT EDUCATION AND MEDICATIONS REVIEWED PRIOR TO DISCHARGE. NO DISTRESS NOTED. PATIENT LEFT WITH ALL PERSONAL BELONGINGS.
--- NOTE | 2024-06-27 13:54 | NUR ---
THIS INFRASTRUCTURE SOFTWARE ENGINEER HAS REVIEWED AND AGREES WITH ALL NOTES AND ASSESSMENTS BY YOLIS MANUEL.
== END 2024-06-27 13:08 | disposition home health service (06) | DRG 683 ==
LOC: MEDS 13:08
PROVIDERS: ADMIT Internal Medicine
DX: N17.9 Acute kidney failure, unspecified (principal); C18.8 Malignant neoplasm of overlapping sites of colon; N39.0 Urinary tract infection, site not specified; C79.51 Secondary malignant neoplasm of bone; G89.29 Other chronic pain; E78.1 Pure hyperglyceridemia; M81.0 Age-related osteoporosis without current pathological fracture; E86.0 Dehydration; G62.9 Polyneuropathy, unspecified; N18.32 Chronic kidney disease, stage 3b; R33.9 Retention of urine, unspecified; Z93.3 Colostomy status; Z15.09 Genetic susceptibility to other malignant neoplasm; Z88.0 Allergy status to penicillin; Z88.1 Allergy status to other antibiotic agents; Z85.42 Personal history of malignant neoplasm of other parts of uterus; Z85.54 Personal history of malignant neoplasm of ureter; Z87.891 Personal history of nicotine dependence
CPT/HCPCS: 36415; 80048; 80053; 81001; 81003; 82570; 84300; 85025; 87077; 87086; 87186; A9270; J1644; J1650; J1956; J2405; J7120

== ENCOUNTER → 2024-06-22 | Outpatient (CLI) | payer OTHER ==
[~2024-06-22] MED LIST changes: +CEPH500 PO; +FENTANYL1 EA10 TOP; +GABA300 PO; +GLYDO6 M2 TOP; +HYDMOR2 PO; +MICONAZOLE NITR85 GM TOP
[2024-06-22 11:25] LABS: BASOPHILS PERCENT AUTO 1 % (0-2); EOSINOPHILS ABSOLUTE AUTO 0.17 K/mm3 (0.00-0.68); EOSINOPHILS PERCENT AUTO 1 % (0-6); Hematocrit 43.6 % (33.0-51.0); Hemoglobin 14.3 g/dL (11.5-16.0); IMMATURE GRAN ABSOLUTE AUTO 0.15 K/mm3 (0.00-0.10); IMMATURE GRAN PERCENT AUTO 1 % (0-1); LYMPHOCYTES ABSOLUTE AUTO 2.02 K/mm3 (0.84-5.20); LYMPHOCYTES PERCENT AUTO 13 % (21-46); MONOCYTES ABSOLUTE AUTO 1.05 K/mm3 (0.16-1.47); MONOCYTES PERCENT AUTO 7 % (4-13); Mean Corpuscular HGB 28.8 pg (26.0-34.0); Mean Corpuscular HGB Conc 32.8 g/dL (31.5-36.5); Mean Corpuscular Volume 88 fL (80-100); Mean Platelet Volume 9.6 fL (9.1-12.4); NEUTROPHILS ABSOLUTE AUTO 12.42 K/mm3 (1.96-9.15); NEUTROPHILS PERCENT AUTO 78 % (41-73); Platelet Count 517 K/mm3 (150-400); RDW Coefficient Variation 14.5 % (11.7-14.2); RDW Standard Deviation 46.2 fL (35.1-46.3); Red Blood Cell Count 4.96 M/mm3 (3.80-5.20); White Blood Cell Count 15.91 K/mm3 (4.00-11.30)
[2024-06-22 11:41] LABS: Albumin/Globulin Ratio 0.5 (0.8-1.8); Bilirubin, Total 0.7 mg/dL (0.1-1.0); Bun/Creatinine Ratio 32.2 (12.0-20.0); Creatinine, Blood 1.99 mg/dL (0.40-1.00); Magnesium, Blood 1.9 mg/dL (1.6-2.4); Potassium, Blood 4.3 mmol/L (3.5-5.5)
== END | disposition home or self-care (01) ==
LOC: LAB 11:20 → LAB SHORT 11:20
PROVIDERS: Family Medicine
DX: E86.0 Dehydration (principal)
CPT/HCPCS: 80053; 83735; 83880; 84484; 85025

== ENCOUNTER 2024-09-20 11:02 | Observation (INO) | payer OTHER ==
[~2024-09-20] VITALS: Ht 167.6 cm; Wt 48.4 kg
[~2024-09-20 11:02] MED LIST changes: +DILT180 PO; +DOCUZEN 8.6-501 EACH PO; +HYDACE10B PO; +LEVO750 PO
[2024-09-20 12:07] LABS: BASOPHILS ABSOLUTE AUTO 0.09 K/mm3 (0.00-0.23); BASOPHILS PERCENT AUTO 1 % (0-2); EOSINOPHILS ABSOLUTE AUTO 0.45 K/mm3 (0.00-0.68); EOSINOPHILS PERCENT AUTO 4 % (0-6); Hematocrit 40.4 % (33.0-51.0); IMMATURE GRAN ABSOLUTE AUTO 0.04 K/mm3 (0.00-0.10); IMMATURE GRAN PERCENT AUTO 0 % (0-1); LYMPHOCYTES ABSOLUTE AUTO 1.53 K/mm3 (0.84-5.20); LYMPHOCYTES PERCENT AUTO 14 % (21-46); MONOCYTES ABSOLUTE AUTO 0.68 K/mm3 (0.16-1.47); MONOCYTES PERCENT AUTO 6 % (4-13); Mean Corpuscular HGB 27.5 pg (26.0-34.0); Mean Corpuscular HGB Conc 32.2 g/dL (31.5-36.5); Mean Corpuscular Volume 85 fL (80-100); Mean Platelet Volume 8.8 fL (9.1-12.4); NEUTROPHILS ABSOLUTE AUTO 8.24 K/mm3 (1.96-9.15); NEUTROPHILS PERCENT AUTO 75 % (41-73); Platelet Count 479 K/mm3 (150-400); RDW Coefficient Variation 15.3 % (11.7-14.2); RDW Standard Deviation 47.7 fL (35.1-46.3); Red Blood Cell Count 4.73 M/mm3 (3.80-5.20); White Blood Cell Count 11.03 K/mm3 (4.00-11.30)
[2024-09-20 12:48] LABS: Albumin, Blood 3.6 g/dL (3.4-5.0); Albumin/Globulin Ratio 0.7 (0.8-1.8); Bilirubin, Total 0.7 mg/dL (0.1-1.0); Bun/Creatinine Ratio 22.2 (12.0-20.0); Calcium, Blood 10.3 mg/dL (8.5-10.1); Creatinine, Blood 1.98 mg/dL (0.40-1.00); Magnesium, Blood 2.5 mg/dL (1.6-2.4); Potassium, Blood 4.6 mmol/L (3.5-5.5); Total Protein, Blood 8.6 g/dL (6.4-8.2)
[2024-09-20] MEDS ORDERED: D5W-NS 1,000 ML IV SCH (13:50)
[2024-09-20] MEDS ORDERED: Morphine Sulfate 4 MG/1 ML Injection IV ONE (13:50)
[2024-09-20] MEDS ORDERED: Gabapentin 300 MG Cap PO ONE (13:50)
[2024-09-20] MEDS ORDERED: CARTIA XT PO (14:43)
[2024-09-20] MEDS ORDERED: Belladonna Alkaloids/Opium 60 MG Sup PR ONE (15:35)
[2024-09-20] MEDS ORDERED: FentaNYL Citrate 50 MCG/ML 2 ML Injection IV ONE (15:40)
[2024-09-20 16:18] LABS: Source, Urine Foley catheter
[2024-09-20 16:25] LABS: Appearance, Urine Hazy (Clear); Bilirubin, Urine Neg (Neg); Blood, Urine 2+ (Neg); Color, Urine Yellow (P-Yellow); Glucose Qualitative, Urine 3+ (Neg); Ketones, Urine 2+ (Neg); Leukocyte Esterase, Urine 2+ (Neg); Nitrite, Urine Neg (Neg); Protein, Urine 2+ (Neg); Urobilinogen, Urine NORM (Normal)
[2024-09-20 16:32] LABS: White Blood Cells, Urine 25-50 /hpf (0-5)
[2024-09-20 16:33] LABS: Bacteria Few /hpf; Squamous Epithelial Cells Few /hpf (Few); Yeast/Fungi Urine Few /hpf
[2024-09-20] MEDS ORDERED: Fluconazole 100 MG Tab PO ONE (17:00)
[2024-09-20] MEDS ORDERED: CefTRIAXone Sodium 1,000 MG in NS 50 ML IV ONE (17:00)
[2024-09-20] MEDS ORDERED: Loperamide HCl 2 MG Cap PO ONE (17:15)
[2024-09-20] MEDS ORDERED: Diphenoxylat/Atrop 2.5 / 0.025MG 1 Tab PO ONE (17:15)
[2024-09-20] MEDS ORDERED: Ondansetron 4 MG TAB PO PRN (18:05)
[2024-09-20] MEDS ORDERED: Ondansetron HCl 2 MG / ML 2ML Vial IV PRN (18:05)
[2024-09-20] MEDS ORDERED: FLU VACC TS2024-25(6MOS UP)/PF 45 MCG/0.5 ML SYRINGE IM SCH (18:10)
[2024-09-20] MEDS ORDERED: Metoclopramide HCl 5MG / ML 2ML Vial IV PRN (18:10)
[2024-09-20] MEDS ORDERED: Prochlorperazine Edisylate 10 mg Vial IV PRN (18:10)
[2024-09-20] MEDS ORDERED: HYDROcodone 5-APAP 325 TAB PO PRN (18:10)
[2024-09-20] MEDS ORDERED: TraZODone HCl 50 MG Tab PO PRN (18:10)
[2024-09-20] MEDS ORDERED: Diphenoxylat/Atrop 2.5 / 0.025MG 1 Tab PO PRN ×2 (18:15)
[2024-09-20] MEDS ORDERED: Loperamide HCl 2 MG Cap PO PRN (18:15)
[2024-09-20] MEDS ORDERED: Morphine Sulfate 10 MG/ML 1MLSYR IV PRN (18:15)
[2024-09-20] MEDS ORDERED: NS 1,000 ML IV SCH (18:20)
--- NOTE | 2024-09-20 18:46 | NUR ---
PT ARRIVED TO ROOM AOX4 AND COOPERATIVE OF CARE. PT HAD RECTAL TUBE PLACE WITH DR PERMISSION IN VAGINA PER ER NURSE REPORT STOOL IS RUNNING INTO VAGINA. PT IS COMFORTABLE AT THE MOMENT AND HAS CALL LIGHT WITHIN REACH. WILL CONTINUE TO MONITOR.
[2024-09-20 19:42] VITALS: BP 121/61
[2024-09-20] MEDS ORDERED: Banana Flakes/Tos 1 EA Powder Pack PO SCH (21:00)
[2024-09-20] MEDS ORDERED: Lactobacil 2-S.Thermo-Bifido 1 1 Cap PO SCH (21:00)
[2024-09-20] MEDS ORDERED: Famotidine 20 MG Tab PO SCH (21:00)
[2024-09-21 03:51] VITALS: BP 108/65
[2024-09-21 05:03] LABS: BASOPHILS ABSOLUTE AUTO 0.11 K/mm3 (0.00-0.23); BASOPHILS PERCENT AUTO 1 % (0-2); EOSINOPHILS ABSOLUTE AUTO 0.72 K/mm3 (0.00-0.68); EOSINOPHILS PERCENT AUTO 8 % (0-6); Hematocrit 33.3 % (33.0-51.0); Hemoglobin 10.4 g/dL (11.5-16.0); IMMATURE GRAN ABSOLUTE AUTO 0.04 K/mm3 (0.00-0.10); IMMATURE GRAN PERCENT AUTO 0 % (0-1); LYMPHOCYTES ABSOLUTE AUTO 2.02 K/mm3 (0.84-5.20); LYMPHOCYTES PERCENT AUTO 22 % (21-46); MONOCYTES ABSOLUTE AUTO 0.77 K/mm3 (0.16-1.47); MONOCYTES PERCENT AUTO 8 % (4-13); Mean Corpuscular HGB 27.5 pg (26.0-34.0); Mean Corpuscular HGB Conc 31.2 g/dL (31.5-36.5); Mean Corpuscular Volume 88 fL (80-100); NEUTROPHILS ABSOLUTE AUTO 5.68 K/mm3 (1.96-9.15); NEUTROPHILS PERCENT AUTO 61 % (41-73); Platelet Count 317 K/mm3 (150-400); RDW Coefficient Variation 15.4 % (11.7-14.2); RDW Standard Deviation 49.7 fL (35.1-46.3); Red Blood Cell Count 3.78 M/mm3 (3.80-5.20); White Blood Cell Count 9.34 K/mm3 (4.00-11.30)
--- NOTE | 2024-09-21 05:09 | NUR ---
ADMITTED FROM ER @ SHIFT CHANGE FOR INTRACTABLE PAIN IN HER MADELAINE AREA, BUTTOCKS AND L HIP FROM A MASS IN HER PELVIS WHICH HAS CAUSED BILAT SACRAL FXS. CONSULTS CALLED EXCEPT DR. MOHAN D/T THE HOUR AND ONLY CELL PHONE LISTED. PT IS AAOX4. SHE IS VERY PLEASANT AND COOPERAIVE WITH CARES, RINGS APPROPRIATELY. IV LFA WITH NS INFUSING @ 100ML/HR. 25MCG FENTANYL R POSTERIOR SHOULDER, CHANGED 09/19/24. ILLIOSTOMY IS FILLING, PER PT MORE BM IN BAG THAN THE LAST FEW DAYS. CHRONIC MCDONALD CATH DRAINING CLEAR YELLOW URINE. 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 PT HAS NOT BEEN OUT OF BED THIS SHIFT.
[2024-09-21 05:46] LABS: Albumin, Blood 2.6 g/dL (3.4-5.0); Bilirubin, Total 0.3 mg/dL (0.1-1.0); Bun/Creatinine Ratio 22.4 (12.0-20.0); Calcium, Blood 8.7 mg/dL (8.5-10.1); Creatinine, Blood 1.52 mg/dL (0.40-1.00); Potassium, Blood 3.9 mmol/L (3.5-5.5)
[2024-09-21 05:47] LABS: Albumin/Globulin Ratio 0.7 (0.8-1.8); Globulin, Blood 3.7 g/dL (2.2-4.0); Total Protein, Blood 6.3 g/dL (6.4-8.2)
[2024-09-21 07:33] VITALS: BP 108/63
[2024-09-21] MEDS ORDERED: Diltiazem HCl 180 MG Cap.CD PO SCH (09:00)
[2024-09-21] MEDS ORDERED: Enoxaparin 30 MG/0.3 ML SYR SC SCH (09:00)
[2024-09-21 14:38] VITALS: BP 115/64
--- NOTE | 2024-09-21 15:39 | NUR ---
Met with pt to discuss Code Status. We had a very productive conversation, and she did choose DNR once we discussed what CPR would entail. She verbalized understanding and POLST updated.
[2024-09-21] MEDS ORDERED: OCTREOTIDE ACETATE 100 MCG/ML IV SCH (16:00)
--- NOTE | 2024-09-21 16:13 | NUR ---
MET WITH PATIENT AND DISCUSSED HER RECENT MEDICAL HISTORY. SHE REPORTED THAT SHE HAS BEEN FOLLOWED BY DR. ASCENCIO. SHE IS DUE FOR HER THIRD TREATMENT THIS FRIDAY. SHE HAS AN TELEHEALTH APT AT [facility] THE MIDDLE OF OCTOBER. PATIENT WAS TEARFUL SHE EXPRESSED THAT SHE WAS FRUSTRATED ABOUT HER SITUATION. HER MOTHER OF COLON CANCER AND WAS NOT STRONG ENOUGH TO SURVIVE SURGERY. DISCUSSED CASE WITH PALLIATIVE CARE TEAM. CALLED DR. LAYNE TO DISCUSS, HIS MAIN CONCERN AT THIS TIME WAS ADDRESSING CODE STATUS. KENYETTA TABOR ACCOMPINIED ME TO THE ROOM WHERE WE DISCUSSED CODE STATUS. PATIENT WAS AGREEABLE TO CHANGE TO DNR CODE STATUS (SEE ROWYD NOTE). DR. ANDERSON ROUNDED SHORTLY AFTERWARDS. SHE EXPRESSED THAT THE PATIENT WAS NOT A GOOD CANDIDATE FOR SURGICAL INTERVENTIONS AT THIS TIME. SHE PROVIDED COMPASSIONATE AND COMPREHENSIVE EXPLINATION OF PATIENTS ANATOMY AND TUMOR AND EXPRESSED THAT A SURGERY AT THIS TIME MAY MAKE THINGS WORSE. PATIENT STATED THAT SHE WISHED HER WAS HERE. WE RELAYED THAT WE COULD COME BACK TOMORROW TO GO OVER THINGS WITH HIM PRESENT. WE DISCUSSED HOSPICE AND THE GOALS WOULD BE SHIFTED TO COMFORT AND QUALITY RATHER THAN LIFE PROLONGATION AND CURATIVE MEASURES. DR. ANDERSON REACHED OUT TO DR. ASCENCIO FOR HIS RECOMENDATIONS FROM A ONCOLOGY STANDPOINT. PC WILL REMAIN AVALIABLE
[2024-09-21] MEDS ORDERED: CefTRIAXone Sodium 1,000 MG in NS 100 ML IV SCH (18:00)
--- NOTE | 2024-09-21 19:07 | NUR ---
SHIFT SUMMARY A&OX4. PT ADMITTED FOR INTRACTABLE PAIN, PERINEAL SKIN BREAKDOWN. PT REPORTS VAGINAL PAIN. PT ESCORIATED ON BOTTOM. BARRIER CREAM APPLIED AND CLEANSED Q2 HRS. PT MEDICATED PER EMAR. PT REPORTS BURNING SENSATION AT VAGINAL SITE. PT HAS ESCORIATION ON BOTTOM. WOUND CARE COMPLETED ON VAGINA DURING SHIFT. PT HAS RECTAL TUBE, PRODUCED OUTPUT. PT HAS MCDONALD, PRODUCING OUTPUT. PT IS DNR, WRISTBAND APPLIED. YOEL WAS CONSULTED TODAY. PT HAS NS RUNNING AT 100 ML/HR. PT AND SON WAS AT BEDSIDE DURING SHIFT. PT CALLS APPROPRIATE AND CALL LIGHT IN REACH. PT EATS ADEQUATELY, ON BEDREST DUE TO LINES/TUBES. PALLIATIVE CARE WAS AT BEDSIDE DURING SHIFT.
[2024-09-21 19:19] VITALS: BP 131/63
[2024-09-21] MEDS ORDERED: Protein Supplement 30 ML UD PO SCH (21:00)
[2024-09-22 04:39] VITALS: BP 139/72
[2024-09-22 07:10] VITALS: BP 124/69
--- NOTE | 2024-09-22 08:16 | NUR ---
SHIFT SUMMARY: A&Ox4, PLEASANT AND COOPERATIVE WITH CARE. VSS ON RA. C/O PAIN IN PERIANAL AREA 01/03, MEDICATED WITH PRN 5 MG PO NORCO. TOLERATING A REGULAR DIET, POOR PO INTAKE. MCDONALD CATHETER DRAINING LIGHT YELLOW URINE TO GRAVITY. RECTAL TUBE IN VAGINA WITH MODERATE AMOUNTS OF BROWN STOOL. ILEOSTOMY WITH MODERATE AMOUNTS OF THICK, MUSHY BROWN STOOL. PT HAVING OUTPUT FROM AROUND THE RECTAL VAGINAL TUBE, BRIEF IN PLACE AND CHANGED NEEDED. PT ON BEDREST, REPOSITIONS SELF IN BED. BED IN LOWEST POSITION, CALL LIGHT WITHIN REACH.
[2024-09-22] MEDS ORDERED: FentaNYL 25 MCG Patch TOP SCH (09:00)
--- NOTE | 2024-09-22 12:37 | NUR ---
MET WITH CURTIS AFTER DR. ANDERSON ROUNDED. PATIENT HAD EXPRESSED THAT SHE WISHES TO GO HOME ON HOSPICE. DISCUSSED THIS WITH CURTIS AND HER LOKESH (EMILIA). EXTENSIVE CONVERSATION ABOUT WHAT HOSPICE PROVIDES AND EMPHASISED HOSPICE FOCUS ON PROVIDING QUALITY AND COMFORT AT THE END OF LIFE. DR. LAYNE CAME IN WHILE I WAS THERE. HE SIGNED POLST. COPY SENT TO MEDICAL RECORDS, AND REGISTRY. DISCUSSED WITH BEDSIDE RN AND CARE COORDINATION. PC WILL REMAIN AVALIABLE
--- NOTE | 2024-09-22 17:08 | NUR ---
SHIFT SUMMARY: NO EVENTS OR CHANGES WITH THE PATIENT THROUGHOUT THE SHIFT. SHE HAS BEEN ON BEDREST, UTILIZING A MCDONALD CATH AND RECTAL TUBE. MADELAINE CARE BEING PROVIDED. MANAGING PAIN WITH 1 TABLET OF NORCO PRN PER PATIENT REQUEST. NEW FENTANYL PATIENT PLACED TODAY. PATIENT ORAL INTAKE POOR DUE TO DECREASED APPETITE AND ABDOMINAL PAIN AFTER INTAKE; DR. ANDERSON IS AWARE; BOWEL MEDS HELD AND TO PATIENT TO LISTEN TO HER BODY. RECTAL TUBE AMOUNT MINIMAL. PATIENT IS GETTING IV FLUIDS AND PLAN IS TO D/C ON HOSPICE 09/24/24. PATIENT A&OX4, CALLS APPROPRIATELY, CALL LIGHT WITHIN REACH, NO SIGNS OR SYMPTOMS OF DISTRESS, PLAN OF CARE ONGOING.
[2024-09-22 17:26] VITALS: BP 124/65
[2024-09-22 19:07] VITALS: BP 120/68
[2024-09-23 02:54] VITALS: BP 138/69
--- NOTE | 2024-09-23 06:28 | NUR ---
SHIFT SUMMARY: Pt is admitted for pain and is a DNR. is alert and able to make needs known. ADLs have been 1p but has been on bed rest. When asked she has stated her pain is 2/10 or it s ok right now. folly in place and draining clear yellow urine. Illiostomy present and out put is brown mostly liquid. Rectal tube in place with no output so far this shift.
[2024-09-23 07:25] VITALS: BP 129/66
[2024-09-23 15:56] VITALS: BP 114/60
--- NOTE | 2024-09-23 16:28 | NUR ---
SHIFT SUMMARY: PATIENT SEEMING TO BE EXPERIENCING MORE PAIN TODAY; HAVING DIFFICULTY MANAGING PAIN WITH PRIOR REGIMEN OF 1 NORCO Q4 HOURS APPROX. PATIENT STAYING PAIN IS LINGERING. PATIENT GIVEN 2 TABLETS OF NORCO INSTEAD OF 1 TO SEE IF MORE EFFECTIVE WITH PAIN MANAGEMENT. PATIENT IS PRODUCING STOOL IN BOTH HER ILEOSTOMY AND RECTUAL TUBE FROM RECTOVAGINAL FISTUAL SITE AND PRODUCING URINE INTO MCDONALD. PATIENT TAKING IN FOODS AND LIQUIDS; IV FLUIDS STOPPED TODAY. PATIENT C/O INTENSE PAIN WITH 1600 DOSE OF SANDOSTATIN. SIGNS OF INFILTRATION OF IV SITE, REDNESS, SWELLING, ETC. CALL MADE TO PHARMACY AND ASKED ABOUT SWITCHING TO PIGGYBACK. PHARMACY CHANGED ORDERED. PATIENT IN BED, CALL LIGHT WITHIN REACH, NO SIGNS OR SYMPTOMS OF DISTRESS, PLAN OF CARE ONGOING.
[2024-09-23 19:34] VITALS: BP 102/64
[2024-09-24] MEDS ORDERED: NS IV SCH
[2024-09-24] MEDS ORDERED: OCTREOTIDE ACETATE IV SCH
[2024-09-24 04:52] VITALS: BP 112/56
--- NOTE | 2024-09-24 05:34 | NUR ---
SHIFT SUMMARY: Pt is admitted for pain and is a DNR. is alert and able to make needs known. ADLs have been 1p but has been on bed rest. When asked she has stated her pain is 2/10 or it s ok right now. folly in place and draining clear yellow urine. Illiostomy present and out put is brown mostly liquid. Rectal tube in place with little output so far this shift.
[2024-09-24 06:59] VITALS: BP 119/48
--- NOTE | 2024-09-24 08:44 | NUR ---
LOST PATENCY IN PATIENT'S IV THIS MORNING. PATIENT HAS IV SANDOSTATIN ORDERED BY DR. ANDERSON. CALL MADE TO DR. ANDERSON TO ASK IF SHE WANTED TO PATIENT TO CONTINUE GETTING. PER DR. JUSTIN UMAÑA TO D/C.
[2024-09-24] MEDS ORDERED: LOPE2C PO (10:43)
[2024-09-24] MEDS ORDERED: BANATROL PLUS1 EAC1 PO (10:43)
[2024-09-24] MEDS ORDERED: DILT180 PO (10:43)
--- NOTE | 2024-09-24 11:30 | NUR ---
DISCHARGE NOTE: PATIENT IV REMOVED, GOT DRESSED, AND GATHERED BELONGINGS, AND WENT OVER DISCHARGE. PATIENT'S ARRIVED AND PATIENT WAS ASSISTED INTO THE WHEELCHAIR AND WAS GIVEN BELONGINGS TO HER AND HER AND WAS WHEELED DOWN BY BOTTLE SELECTOR. NO SIGNS OR SYMPTOMS OF DISTRESS DURING DISCHARGE.
--- NOTE | 2024-09-24 11:46 | NUR ---
MET WITH PATIENT AND HER . SHE WAS GETTING READY TO BE DISCHARGED. ASSISTED WITH GETTING HER SHOES ON. SHE EXPRESSED THAT SHE WAS HAVING SOME DISCOMFORT IN HER STOMACH BUT WAS UNSURE IF IT WAS JUST HUNGER.
== END 2024-09-24 11:28 | disposition hospice, home (50) ==
LOC: ER 11:02 → MEDS 11:03 → ENPENDDIS 09-24 10:35 → MEDS 09-24 11:28
PROVIDERS: Physician Assistant; Student in an Organized Health Care Education/Training Program; ADMIT Internal Medicine
DX: N82.3 Fistula of vagina to large intestine (principal); N39.0 Urinary tract infection, site not specified; N17.9 Acute kidney failure, unspecified; N18.4 Chronic kidney disease, stage 4 (severe); C18.9 Malignant neoplasm of colon, unspecified; C79.89 Secondary malignant neoplasm of other specified sites; G89.3 Neoplasm related pain (acute) (chronic); E88.A Wasting disease (syndrome) due to underlying condition; E78.5 Hyperlipidemia, unspecified; Z66 Do not resuscitate; Z93.2 Ileostomy status; Z87.891 Personal history of nicotine dependence; Z79.899 Other long term (current) drug therapy; Z88.0 Allergy status to penicillin; Z88.2 Allergy status to sulfonamides; Z88.8 Allergy status to other drugs, medicaments and biological substances; Z90.49 Acquired absence of other specified parts of digestive tract
CPT/HCPCS: 36415; 51702; 74177; 80053; 81001; 83735; 85025; 87086; 96361; 96365-59; 96366; 96372; 96375; 96376; 99285-25; A9270; G0378; J0696; J1650; J2270; J2354; J3010; J7030; J7042; Q9967